=== PATIENT | male | born 1975 | race Caucasian/White ===

== ENCOUNTER 2018-02-21 14:29 | Emergency (ER) | payer SELFPAY ==
[~2018-02-21] VITALS: Ht 177.8 cm; Wt 90.0 kg
[2018-02-21 16:15] LABS: HEMATOCRIT 39.5 % (39.0-50.0); HEMOGLOBIN 12.9 g/dl (14.0-18.0); IMMATURE GRANULOCYTES 0.5 % (0.0-1.0); MEAN CORPUSCULAR HGB 29.7 pG CALC (26.0-32.0); MEAN CORPUSCULAR HGB CONC 32.7 g/L CALC (32.0-36.0); NEUT# 2.51 thou/uL (1.82-7.42); RED BLOOD COUNT 4.34 mill/uL (4.70-6.10); RED CELL DISTRI WIDTH 15.1 % (11.5-15.5)
[2018-02-21 16:27] LABS: URINE BILIRUBIN - DIPSTICK NEGATIVE (NEGATIVE); URINE BLOOD DIPSTICK NEGATIVE (NEGATIVE); URINE COLOR YELLOW; URINE GLUCOSE - DIPSTICK NEGATIVE (NEGATIVE); URINE KETONE NEGATIVE (NEGATIVE); URINE LEUK ESTERASE NEGATIVE (NEGATIVE); URINE NITRITE - DIPSTICK NEGATIVE (Negative); URINE PROTEIN - DIPSTICK NEGATIVE (NEG-TRACE); URINE UROBILINOGEN - DIPSTICK 0.2 E.U./dL (0.2)
[2018-02-21 16:29] LABS: URINE CLARITY CLEAR
[2018-02-21 16:30] LABS: COCAINE POSITIVE (NEGATIVE); METHADONE POSITIVE (NEGATIVE); TETRAHYDROCANNABIONOL NEGATIVE (NEGATIVE)
[2018-02-21 16:31] LABS: BARBITURATES NEGATIVE (NEGATIVE); OXCYCODONE NEGATIVE (NEGATIVE); TRICYLIC ANTIDEPRESSANTS NEGATIVE (NEGATIVE)
[2018-02-21 16:36] LABS: ALBUMIN 4.2 g/dL (3.2-5.0); ALKALINE PHOSPHATASE 97 u/l (38-126); ANION GAP 21 (6-22 (CALC)); BILIRUBIN, TOTAL 0.6 mg/dL (0.0-1.4); BUN 8 mg/dL (9-20); BUN/CREATININE RATIO 11 (12-20 (CALC)); CARBON DIOXIDE 21 mmol/l (22-30); CHLORIDE 104 mmol/l (95-108); CREATININE 0.7 mg/dL (0.7-1.3); GFR > 60 ML/MIN (>=60 (CALC)); GFR FOR AFR.AMER. > 60 ML/MIN (>=60 (CALC)); POTASSIUM 3.8 mmol/l (3.5-5.1); SGOT/AST 29 u/l (17-59); SGPT/ALT 37 u/l (21-72); SODIUM 142 mmol/l (137-146); TOTAL PROTEIN 7.5 g/dL (6.3-8.2)
[2018-02-21 17:25] VITALS: BP 112/58
== END 2018-02-21 17:23 | disposition short-term general hospital (02) | DRG 208 ==
LOC: ED 14:29
PROVIDERS: Emergency Medicine
PROC: 0BH17EZ Insertion of Endotracheal Airway into Trachea, Via Natural or Artificial Opening (ICD-10-PCS; principal; 2018-02-21)
PROC: 5A1935Z Respiratory Ventilation, Less than 24 Consecutive Hours (ICD-10-PCS; 2018-02-21)
PROC: 0T9B70Z Drainage of Bladder with Drainage Device, Via Natural or Artificial Opening (ICD-10-PCS; 2018-02-21)
DX: J96.00 Acute respiratory failure, unspecified whether with hypoxia or hypercapnia (principal); J18.9 Pneumonia, unspecified organism; F19.10 Other psychoactive substance abuse, uncomplicated

== ENCOUNTER 2018-05-31 12:00 | Emergency (ER) | payer SELFPAY ==
[~2018-05-31] VITALS: Ht 177.8 cm; Wt 91.0 kg
[~2018-05-31 12:00] MED LIST: ASPERCREME LIDOCA41 TOP; PREDNISONE50 MG PO; TRAMADOL HYDROC50 MG PO
[2018-05-31] MEDS ORDERED: MEDDOSEPAK PO (12:39)
[2018-05-31] MEDS ORDERED: MELOXICAM7.5 MG PO (12:39)
[2018-05-31] MEDS ORDERED: GABAPENTIN400 M2 PO (12:42)
[2018-05-31] MEDS ORDERED: METHADONE10 M1 PO (12:43)
[2018-05-31 12:50] VITALS: BP 137/84
== END 2018-05-31 12:50 | disposition home or self-care (01) | DRG 93 ==
LOC: ED 12:00
DX: G89.29 Other chronic pain (principal); M54.5 Low back pain; Z79.891 Long term (current) use of opiate analgesic

== ENCOUNTER 2018-06-28 10:40 | Emergency (ER) | payer SELFPAY ==
[~2018-06-28] VITALS: Ht 177.8 cm; Wt 88.4 kg
[~2018-06-28 10:40] MED LIST changes: +GABAPENTIN400 M2 PO; +MEDDOSEPAK PO; +MELOXICAM7.5 MG PO; +METHADONE10 M1 PO
[2018-06-28] MEDS ORDERED: GABAPENTIN400 MG PO (11:25)
[2018-06-28 12:01] VITALS: BP 134/73
== END 2018-06-28 12:02 | disposition home or self-care (01) | DRG 951 ==
LOC: ED 10:40
DX: Z76.0 Encounter for issue of repeat prescription (principal); G40.909 Epilepsy, unspecified, not intractable, without status epilepticus

== ENCOUNTER 2018-10-14 02:42 | Emergency (ER) | payer SELFPAY ==
[~2018-10-14] VITALS: Ht 177.8 cm; Wt 80.0 kg
[~2018-10-14 02:42] MED LIST changes: +GABAPENTIN400 MG PO
[2018-10-14 03:36] LABS: IMMATURE GRANULOCYTES 0.4 % (0.0-5.0); MEAN CELL VOLUME 89.5 fL CALC (80.0-100.0); MEAN CORPUSCULAR HGB 30.5 pG CALC (26.0-32.0); MEAN CORPUSCULAR HGB CONC 34.1 g/L CALC (32.0-36.0); NEUT# 5.2 thou/uL (1.82-7.42); RED BLOOD COUNT 5.24 mill/uL (4.70-6.10); RED CELL DISTRI WIDTH 13.1 % (11.5-15.5)
[2018-10-14 03:37] LABS: HEMATOCRIT 46.9 % (39.0-50.0)
[2018-10-14 03:37] LABS: URINE BILIRUBIN - DIPSTICK NEGATIVE (NEGATIVE); URINE BLOOD DIPSTICK NEGATIVE (NEGATIVE); URINE COLOR YELLOW; URINE GLUCOSE - DIPSTICK NEGATIVE (NEGATIVE); URINE KETONE >=80 mg/dL (NEGATIVE); URINE LEUK ESTERASE NEGATIVE (NEGATIVE); URINE NITRITE - DIPSTICK NEGATIVE (Negative); URINE PH 7.5 (4.5-8.0); URINE PROTEIN - DIPSTICK TRACE mg/dL (NEG-TRACE); URINE SPECIFIC GRAVITY 1.015; URINE UROBILINOGEN - DIPSTICK 0.2 E.U./dL (0.2)
[2018-10-14 03:42] LABS: ALBUMIN 4.8 g/dL (3.2-5.0); ALKALINE PHOSPHATASE 135 u/l (38-126); ANION GAP 18 (6-22 (CALC)); BILIRUBIN, TOTAL 0.9 mg/dL (0.0-1.4); BUN 6 mg/dL (9-20); BUN/CREATININE RATIO 9 (12-20 (CALC)); CARBON DIOXIDE 23 mmol/l (22-30); CHLORIDE 104 mmol/l (95-108); CREATININE 0.6 mg/dL (0.7-1.3); GFR > 60 ML/MIN (>=60 (CALC)); GFR FOR AFR.AMER. > 60 ML/MIN (>=60 (CALC)); SODIUM 140 mmol/l (137-146); TOTAL PROTEIN 8.5 g/dL (6.3-8.2)
[2018-10-14 03:43] LABS: BARBITURATES NEGATIVE (NEGATIVE); COCAINE NEGATIVE (NEGATIVE); METHADONE POSITIVE (NEGATIVE); OXCYCODONE NEGATIVE (NEGATIVE); TETRAHYDROCANNABIONOL POSITIVE (NEGATIVE); TRICYLIC ANTIDEPRESSANTS NEGATIVE (NEGATIVE)
[2018-10-14 03:44] LABS: SGOT/AST 63 u/l (17-59)
[2018-10-14] MEDS ORDERED: PHENERGAN25 MG RE (04:01)
[2018-10-14 04:35] VITALS: BP 148/65
[2018-10-14] MEDS ORDERED: PHENERGAN25 MG/TAB PO (12:00)
== END 2018-10-14 04:35 | disposition home or self-care (01) | DRG 392 ==
LOC: ED 02:42
PROVIDERS: Family Medicine
DX: K52.9 Noninfective gastroenteritis and colitis, unspecified (principal); G40.909 Epilepsy, unspecified, not intractable, without status epilepticus
CPT/HCPCS: Q9967

== ENCOUNTER 2018-10-14 08:31 | Emergency (ER) | payer SELFPAY ==
[~2018-10-14] VITALS: Ht 177.8 cm; Wt 80.0 kg
[~2018-10-14 08:31] MED LIST changes: +PHENERGAN25 MG RE
[2018-10-14 08:51] VITALS: BP 149/72
[2018-10-14 09:08] LABS: HEMATOCRIT 42.8 % (39.0-50.0); HEMOGLOBIN 14.5 g/dl (14.0-18.0); IMMATURE GRANULOCYTES 0.4 % (0.0-5.0); MEAN CELL VOLUME 91.1 fL CALC (80.0-100.0); MEAN CORPUSCULAR HGB 30.9 pG CALC (26.0-32.0); MEAN CORPUSCULAR HGB CONC 33.9 g/L CALC (32.0-36.0); NEUT# 5.65 thou/uL (1.82-7.42); RED BLOOD COUNT 4.7 mill/uL (4.70-6.10); RED CELL DISTRI WIDTH 13.2 % (11.5-15.5)
[2018-10-14 09:29] LABS: ALBUMIN 4.4 g/dL (3.2-5.0); ALKALINE PHOSPHATASE 111 u/l (38-126); ANION GAP 14 (6-22 (CALC)); BILIRUBIN, TOTAL 0.8 mg/dL (0.0-1.4); BUN 6 mg/dL (9-20); BUN/CREATININE RATIO 10 (12-20 (CALC)); CARBON DIOXIDE 25 mmol/l (22-30); CHLORIDE 106 mmol/l (95-108); CREATININE 0.6 mg/dL (0.7-1.3); GFR > 60 ML/MIN (>=60 (CALC)); GFR FOR AFR.AMER. > 60 ML/MIN (>=60 (CALC)); LIPASE 203 u/l (23-300); POTASSIUM 4.3 mmol/l (3.5-5.1); SGOT/AST 58 u/l (17-59); SODIUM 140 mmol/l (137-146); TOTAL PROTEIN 7.7 g/dL (6.3-8.2)
[2018-10-14 10:28] LABS: URINE BILIRUBIN - DIPSTICK NEGATIVE (NEGATIVE); URINE BLOOD DIPSTICK NEGATIVE (NEGATIVE); URINE COLOR YELLOW; URINE GLUCOSE - DIPSTICK NEGATIVE (NEGATIVE); URINE KETONE 15 mg/dL (NEGATIVE); URINE LEUK ESTERASE NEGATIVE (NEGATIVE); URINE NITRITE - DIPSTICK NEGATIVE (Negative); URINE PROTEIN - DIPSTICK NEGATIVE (NEG-TRACE); URINE UROBILINOGEN - DIPSTICK 0.2 E.U./dL (0.2)
[2018-10-14] MEDS ORDERED: PHENERGAN25 MG/TAB PO (12:00)
== END 2018-10-14 12:00 | disposition home or self-care (01) | DRG 392 ==
LOC: ED 08:31
PROVIDERS: Family Medicine
DX: K52.9 Noninfective gastroenteritis and colitis, unspecified (principal); G40.909 Epilepsy, unspecified, not intractable, without status epilepticus
CPT/HCPCS: Q9967

== ENCOUNTER 2018-10-17 09:15 | Observation (INO) | payer SELFPAY ==
[~2018-10-17] VITALS: Ht 177.8 cm; Wt 91.0 kg
[~2018-10-17 09:15] MED LIST changes: +PHENERGAN25 MG/TAB PO
--- NOTE | 2018-10-17 09:36 | NUR ---
PATIENT TO ROOM VIA WHEELCHAIR. ASSISTED ONTO STRETCHER.
[2018-10-17 10:54] LABS: ALKALINE PHOSPHATASE 96 u/l (38-126); ANION GAP 14 (6-22 (CALC)); BILIRUBIN, TOTAL 0.4 mg/dL (0.0-1.4); BUN 8 mg/dL (9-20); BUN/CREATININE RATIO 11 (12-20 (CALC)); CARBON DIOXIDE 25 mmol/l (22-30); CHLORIDE 108 mmol/l (95-108); CREATININE 0.7 mg/dL (0.7-1.3); GFR > 60 ML/MIN (>=60 (CALC)); GFR FOR AFR.AMER. > 60 ML/MIN (>=60 (CALC)); LIPASE 410 u/l (23-300); POTASSIUM 4.9 mmol/l (3.5-5.1); SGOT/AST 40 u/l (17-59); SODIUM 142 mmol/l (137-146); TOTAL PROTEIN 7.1 g/dL (6.3-8.2)
[2018-10-17 10:55] LABS: HEMATOCRIT 41.2 % (39.0-50.0); HEMOGLOBIN 13.8 g/dl (14.0-18.0); IMMATURE GRANULOCYTES 0.4 % (0.0-5.0); MEAN CELL VOLUME 92.4 fL CALC (80.0-100.0); MEAN CORPUSCULAR HGB 30.9 pG CALC (26.0-32.0); MEAN CORPUSCULAR HGB CONC 33.5 g/L CALC (32.0-36.0); NEUT# 5.06 thou/uL (1.82-7.42); RED BLOOD COUNT 4.46 mill/uL (4.70-6.10); RED CELL DISTRI WIDTH 13.4 % (11.5-15.5)
--- NOTE | 2018-10-17 10:58 | NUR ---
PT RECEIVES MEDS ORDERED FOR RELIEF OF LOUD VOMITING. PT STATES PAIN MED DID NOT HELP.
--- NOTE | 2018-10-17 11:25 | NUR ---
PT PROVIDED THIRD DOSE OF ZOFRAN ALONG WITH MORPHINE 4 MG PER CONTINUED NAUSEA AND PAIN.
[2018-10-17 12:30] VITALS: BP 140/82
--- NOTE | 2018-10-17 12:32 | NUR ---
PT ARRIVED AT 1232 VIA WHEELCHAIR ACCOMPANIED BY MARI HAAS;PT AMBULATED TO STANDING SCALE AND BEDSIDE WITH A STEADY GAIT;WT AND VS OBTAINED BY HERBIE COHEN;PT ORIENTED TO ROOM AND CALL LIGHT SYSTEM;PT ALERT AND ORIENTED X3;PT REPORTS NAUSEA,VOMITING AND DIARRHEA X 4DAYS;PAIN SCALE AND REPORTING EDUCATED;ASSESSMENT COMPLETED;RESPIRATIONS EVEN AND UNLABORED ON RA,CLEAR LUNG SOUNDS NOTED;ABDOMEN SOFT ON PALPATION AND HYPOACTIVE IN ALL 4 QUADRANTS,TENDERNESS NOTED TO LLQ;LAST BM 10/17/18;STRONG PEDAL PULSES;SKIN INTACT;#22G TO RIGHT FOREARM INFUSING NS WITH EASE,SITE APPEARS HEALTHY;IT SHOULD BE NOTED THAT SEIZURE PRECAUTIONS WILL BE PUT INTO PLACE,LAST SEIZURE 1 YEAR AGO;NPO DIET REINFORCED AND PT VERBALIZES UNDERSTANDING;PT DENIES ANY ADDITIONAL NEEDS AT THIS TIME AND IS INSTRUCTED TO CALL FOR ASSISTANCE IF NEEDED;FALL PRECAUTIONS IN PLACE WITH BED IN THE LOWEST POSITION AND CALL LIGHT IN REACH;WILL CONTINUE TO MONITOR
--- NOTE | 2018-10-17 12:36 | NUR ---
REPORT PROVIDED TO VANESSA, TAKEN TO FLOOR WITHOUT INCIDENT.
[2018-10-17 12:50] LABS: URINE BILIRUBIN - DIPSTICK NEGATIVE (NEGATIVE); URINE BLOOD DIPSTICK NEGATIVE (NEGATIVE); URINE COLOR YELLOW; URINE GLUCOSE - DIPSTICK NEGATIVE (NEGATIVE); URINE KETONE NEGATIVE (NEGATIVE); URINE LEUK ESTERASE NEGATIVE (NEGATIVE); URINE NITRITE - DIPSTICK NEGATIVE (Negative); URINE PROTEIN - DIPSTICK NEGATIVE (NEG-TRACE); URINE SPECIFIC GRAVITY 1.015; URINE UROBILINOGEN - DIPSTICK 0.2 E.U./dL (0.2)
[2018-10-17 12:56] LABS: COCAINE NEGATIVE (NEGATIVE); TETRAHYDROCANNABIONOL POSITIVE (NEGATIVE)
[2018-10-17 12:57] LABS: BARBITURATES NEGATIVE (NEGATIVE); METHADONE POSITIVE (NEGATIVE); OXCYCODONE POSITIVE (NEGATIVE); TRICYLIC ANTIDEPRESSANTS NEGATIVE (NEGATIVE)
--- NOTE | 2018-10-17 13:54 | NUR ---
DR CAREN ALDRIDGE WAS NOTIFIED FOR THE PATIENT'S CONSULTATION, HE'LL COME TO SEE THE PATIENT.
--- NOTE | 2018-10-17 14:30 | NUR ---
PT REPORTS INCREASING ABDOMINAL PAIN AND STATES "I HAVENT TAKEN MY HOME MEDICATION IN 1 DAY.I NEED THEM", NOTIFIED AND REPORTS HE WILL PUT NEW ORDERS IN THE SYSTEM.
--- NOTE | 2018-10-17 15:15 | NUR ---
PT RESTING IN SEMI FOWLERS POSITION;RESPIRATIONS EVEN AND UNLABORED ON RA;CURRENT TEMP 100.0, PT MEDICATED WITH 500MG IV OF TYLENOL;PT ALSO REPORTS LLQ ABDOMINAL PAIN RATING 10/10 ON THE PAIN SCALE AND REQUESTS PAIN MEDICATION;PT MEDICATED WITH PRN DEMEROL 25MG IVP,WILL MONITOR FOR EFFECTIVENESS;SEIZURE PRECAUTIONS IN PLACE;PT DENIES ANY ADDITIONAL NEEDS AT THIS TIME;ENCOURAGED TO CALL FOR ASSISTANCE IF NEEDED;CALL LIGHT IN REACH;WILL CONTINUE TO MONITOR
--- NOTE | 2018-10-17 15:20 | NUR ---
AT BEDSIDE DISCUSSING POC.
[2018-10-17 15:36] VITALS: BP 124/73
--- NOTE | 2018-10-17 19:29 | NUR ---
BEDSIDE REPORT RECEIVED FROM NEGIN MENDEZ. PT RESTING IN BED SEMI FOWLERS; ALERT AND ORIENTED. C/O SEVERE LEFT ABOMINAL PAIN AND REPORTS SPASMS. REQUESTS PAIN MEDICATION AT NEXT AVAILABLE TIME. RESPIRATIONS EVEN AND UNLABORED ON ROOM AIR. PLAN OF CARE REVIEWED. PT ENCOURAGED TO VERBALIZE CONCERNS. STATES UNDERSTANDING. SAFETY MEASURES IN PLACE. CALL LIGHT WITHIN REACH.
[2018-10-17 19:56] VITALS: BP 118/51
--- NOTE | 2018-10-17 20:05 | NUR ---
PAIN MEDICATION ADMINISTERED. PT REQUESTING SOMETHING TO EAT; INFORMED THAT DR. ALDRIDGE WILL BE IN TO SEE PT AND UPDATE DIET DEPENDING ON TX PLAN.
--- NOTE | 2018-10-18 00:44 | NUR ---
PT CONTINUES TO C/O SEVERE ABDOMINAL PAIN; MEDICATED PER ORDERS. PT STATES THAT RESTORIL GIVEN AT HS WAS INEFFECTIVE FOR SLEEP. RESPIRATIONS EVEN AND UNLABORED ON ROOM AIR. IV FLUIDS INFUSING WITHOUT DIFFICULTY; IV SITE APPEARS HEALTHY. PT IS INDEPENDENT IN ROOM. SAFETY MEASURES IN PLACE. CALL LIGHT WITHIN REACH.
[2018-10-18 04:50] VITALS: BP 147/88
--- NOTE | 2018-10-18 05:18 | NUR ---
PAIN AND NAUSEA MEDICATION GIVEN AT 0430 WITH GOOD EFFECT. NO CHANGES IN CONDITION THROUGHOUT THE NIGHT. NO OTHER REQUESTS OR CONCERNS AT THIS TIME. CALL LIGHT WITHIN REACH.
[2018-10-18 05:34] LABS: HEMATOCRIT 41.1 % (39.0-50.0); HEMOGLOBIN 13.7 g/dl (14.0-18.0); IMMATURE GRANULOCYTES 0.5 % (0.0-5.0); MEAN CELL VOLUME 93.8 fL CALC (80.0-100.0); MEAN CORPUSCULAR HGB 31.3 pG CALC (26.0-32.0); MEAN CORPUSCULAR HGB CONC 33.3 g/L CALC (32.0-36.0); NEUT# 3.34 thou/uL (1.82-7.42); RED BLOOD COUNT 4.38 mill/uL (4.70-6.10); RED CELL DISTRI WIDTH 13.4 % (11.5-15.5)
[2018-10-18 05:47] LABS: ALBUMIN 3.8 g/dL (3.2-5.0); ALKALINE PHOSPHATASE 82 u/l (38-126); AMYLASE 47 u/l (30-110); ANION GAP 12 (6-22 (CALC)); BILIRUBIN, TOTAL 0.6 mg/dL (0.0-1.4); BUN 6 mg/dL (9-20); BUN/CREATININE RATIO 9 (12-20 (CALC)); CARBON DIOXIDE 29 mmol/l (22-30); CHLORIDE 105 mmol/l (95-108); CREATININE 0.7 mg/dL (0.7-1.3); GFR > 60 ML/MIN (>=60 (CALC)); GFR FOR AFR.AMER. > 60 ML/MIN (>=60 (CALC)); LIPASE 152 u/l (23-300); MAGNESIUM 1.8 mg/dL (1.6-2.3); SGOT/AST 41 u/l (17-59); SODIUM 142 mmol/l (137-146); TOTAL PROTEIN 6.8 g/dL (6.3-8.2)
[2018-10-18 05:51] LABS: POTASSIUM 3.5 mmol/l (3.5-5.1)
--- NOTE | 2018-10-18 07:00 | NUR ---
REPORT RECEIVED FROM MARI CALVO. PT RESTING IN BED. SAFETY PRECAUTIONS IN PLACE. WILL CONTINUE TO MONITOR.
[2018-10-18 08:00] VITALS: BP 125/61
--- NOTE | 2018-10-18 08:00 | NUR ---
PT RESTING IN BED. ALERT AND ORIENTED. VITAL SIGNS OBTAINED AND ASSESSMENT COMPLETED. RESPIRATIONS EVEN AND UNLABORED ON RA. LUNG SOUNDS CLEAR. PEDAL PULSES STRONG. BOWEL SOUNDS ACTIVE. IV # 22 LF FOREARM, FLUIDS INFUSING WITHOUT DIFFICULTY. PT REPORTS PAIN IN THE ABDOMIN AND LOWER BACK BEING AT A 9 OUT OF 10, PT TO BE MEDICATED. PT ENCOURAGED TO USE CALL BACON IF NEEDS SHOULD ARISE. SAFETY PRECAUTIONS IN PLACE. WILL CONTINUE TO MONITOR.
--- NOTE | 2018-10-18 12:00 | NUR ---
PT CRYING IN PAIN. REPORTS PAIN OF 10 OUT 10. MEDICATION NOT DUE AT THIS TIME. TALKED TO DR SMITH ABOUT PT PAIN NOT BEING CONTROLLED, NEW PAIN MEDICATION ORDER TO BE PLACED BY DR SMITH. PT EDUCATED ON PLAN CARE, INCLUDING PAIN MEDICATION CHANGE VERBALIZED UNDERSTANDING. CALL LIGHT WITHIN REACH. WILL CONTINUE TO MONITOR.
--- NOTE | 2018-10-18 12:40 | NUR ---
DR SMITH AT PT BEDSIDE DISCUSSING PLAN OF CARE.
--- NOTE | 2018-10-18 14:09 | NUR ---
DR ALDRIDGE AT PT BEDSIDE DISCUSSING PLAN OF CARE.
--- NOTE | 2018-10-18 16:00 | NUR ---
PT SITTING ON SIDE OF BED. PT COMPLAINING OF NAUSEA FROM DRINKING CONTRAST. CONSULTED DR SMITH ABOUT GIVING PT ZOFRAN AN HOUR EARLY SO THAT PT CAN COMPLETE CONTRAST. AGREES. WILL CONTINUE TO MONITOR.
[2018-10-18 16:10] VITALS: BP 158/84
[2018-10-18 19:35] VITALS: BP 147/90
--- NOTE | 2018-10-18 19:45 | NUR ---
IV SITE ON LFA BEGAN TO LEAK. STOPPED INFUSION. WILL RESTART. THE IV
--- NOTE | 2018-10-18 20:15 | NUR ---
IV RESTARTED IN RFA AFTER 2 ATTEMPTS. PT TOLERATED WELL. #20 RFA
--- NOTE | 2018-10-18 20:45 | NUR ---
ASSESSMENT IS COMPLETED: IV SITE IS FREE FROM REDNESS OR EDEMA. HR IS REG,PULSES ARE STRONG X4, ABD IS SOFT WITH ACTIVE BS. BREATH SOUNDS ARE CLEAR,BILATERALLY.CONTINUE TO OSBERVE AND MONITOR.
--- NOTE | 2018-10-19 00:40 | NUR ---
PT IS RESTING WITH EYES CLOSED NO DISTRESS NOTED. IV SITE IS FREE FROM REDNESS OR EDEMA.
[2018-10-19 04:02] VITALS: BP 149/73
--- NOTE | 2018-10-19 04:10 | NUR ---
PT HAS BEEN RESTING IN BED CONTINUE TO OSBERVE AND MONITOR.
--- NOTE | 2018-10-19 05:15 | NUR ---
PT C/O NEEDING A FAN FOR THE NOISE. ALSO C/O PAIN MEDICATIONS NOT WORKING, HAS HAD LOOSE STOOLS FOR THE LAST HOUR DUE TO ORAL CONTRAST. WANTING SOMETHING TO EAT. CONTINUE TO OSBERVE AND MONITOR.
[2018-10-19 05:47] LABS: HEMATOCRIT 45.5 % (39.0-50.0); HEMOGLOBIN 15.2 g/dl (14.0-18.0); IMMATURE GRANULOCYTES 0.4 % (0.0-5.0); MEAN CELL VOLUME 93.8 fL CALC (80.0-100.0); MEAN CORPUSCULAR HGB 31.3 pG CALC (26.0-32.0); MEAN CORPUSCULAR HGB CONC 33.4 g/L CALC (32.0-36.0); NEUT# 2.8 thou/uL (1.82-7.42); RED BLOOD COUNT 4.85 mill/uL (4.70-6.10); RED CELL DISTRI WIDTH 13.2 % (11.5-15.5)
[2018-10-19 05:58] LABS: ALBUMIN 4.3 g/dL (3.2-5.0); ALKALINE PHOSPHATASE 91 u/l (38-126); AMYLASE 47 u/l (30-110); ANION GAP 14 (6-22 (CALC)); BILIRUBIN, TOTAL 0.8 mg/dL (0.0-1.4); BUN 6 mg/dL (9-20); BUN/CREATININE RATIO 8 (12-20 (CALC)); CARBON DIOXIDE 27 mmol/l (22-30); CHLORIDE 105 mmol/l (95-108); CREATININE 0.7 mg/dL (0.7-1.3); GFR > 60 ML/MIN (>=60 (CALC)); GFR FOR AFR.AMER. > 60 ML/MIN (>=60 (CALC)); LIPASE 151 u/l (23-300); POTASSIUM 3.5 mmol/l (3.5-5.1); SGOT/AST 46 u/l (17-59); SODIUM 142 mmol/l (137-146); TOTAL PROTEIN 7.5 g/dL (6.3-8.2)
--- NOTE | 2018-10-19 06:37 | NUR ---
PT IS C/O NOT HAVING HIS PAIN MEDICATION , WANTING TO GET HIS PAIN MEDICATIONS WITHIN THE HOUR OR HE WILL SIGN OUT AMA. CONCERNED ABOUT GOING THROUGH WITHDRAWALS.
--- NOTE | 2018-10-19 06:41 | NUR ---
SPOKE WITH DR. CASTANON IS REQUESTING THAT PT WAIT FOR DR. CASTANON TO COME IN AND SEE PT RE: MEDICATIONS
--- NOTE | 2018-10-19 07:05 | NUR ---
PT WALKED UP TO NURSES STATION STATING "TAKE THIS OUT OF MY ARM,I HAVE A TAXI DOWNSTAIRS WAITING FOR ME".
--- NOTE | 2018-10-19 07:07 | NUR ---
PT DECIDED TO LEAVE AMA. PT CAME TO THE NURSES STATION AT 0708 DEMANDING TO LEAVE.
--- NOTE | 2018-10-19 07:10 | NUR ---
IV SITE REMOVED WITH CATHETER INTACT.AMA PAPER SIGNED AND PT AMBULATED DOWN HALLWAY WITH A STEADY GAIT.
--- NOTE | 2018-10-19 07:12 | NUR ---
INFORMED RE: PT SIGNING OUT AMA FORM. IV SITE PULLED BY ONCOMING STAFF
== END 2018-10-19 07:10 | disposition left against medical advice (07) | DRG 392 ==
LOC: ED 09:15 → ED-I 11:34 → ED 11:46 → MS2 11:47
PROVIDERS: Family Medicine; ADMIT Internal Medicine Nephrology; ATTEND Internal Medicine Nephrology
DX: R10.84 Generalized abdominal pain (principal); R11.2 Nausea with vomiting, unspecified; G40.909 Epilepsy, unspecified, not intractable, without status epilepticus; F41.9 Anxiety disorder, unspecified; D64.9 Anemia, unspecified; G89.21 Chronic pain due to trauma; Z23 Encounter for immunization; Z79.899 Other long term (current) drug therapy; Z79.891 Long term (current) use of opiate analgesic
CPT/HCPCS: G0378; J0131; J0692; Q9967

== ENCOUNTER 2018-11-11 16:36 | Inpatient (IN) | payer SELFPAY ==
[~2018-11-11] VITALS: Ht 180.3 cm; Wt 88.5 kg
--- NOTE | 2018-11-11 16:48 | NUR ---
PT TO ROOM WITH A STEADY GAIT.
[2018-11-11] MEDS ORDERED: METHADONE10 M1 PO (17:43)
--- NOTE | 2018-11-11 17:46 | NUR ---
PATIENT REFUSED 1000 MG OF TYLENOL PO FOR FOREHEAD PAIN. SWELLING NOTED TO LEFT SIDE OF FOREHEAD AFTER FALL CAUSED BY SEIZURE. PATIENT IS ALERT AND ORIENTED X4. PATIENT STATS "IM IN SO MUCH FUCKING PAIN, I CANT BELEIVE HE ONLY GAVE ME TYLENOL." INFORMED OF PATIENT REQUEST FOR MORPHINE TO TREAT PAIN. NO NEW ORDERS RECEIVED.
[2018-11-11 17:56] LABS: HEMOGLOBIN 15.1 g/dl (14.0-18.0); IMMATURE GRANULOCYTES 0.2 % (0.0-5.0); MEAN CELL VOLUME 90.2 fL CALC (80.0-100.0); MEAN CORPUSCULAR HGB 30.3 pG CALC (26.0-32.0); MEAN CORPUSCULAR HGB CONC 33.6 g/L CALC (32.0-36.0); NEUT# 5.23 thou/uL (1.82-7.42); RED BLOOD COUNT 4.99 mill/uL (4.70-6.10); RED CELL DISTRI WIDTH 13.6 % (11.5-15.5)
[2018-11-11 18:08] LABS: ALKALINE PHOSPHATASE 117 u/l (38-126); ANION GAP 23 (6-22 (CALC)); BILIRUBIN, TOTAL 0.6 mg/dL (0.0-1.4); BUN 6 mg/dL (9-20); BUN/CREATININE RATIO 10 (12-20 (CALC)); CARBON DIOXIDE 24 mmol/l (22-30); CHLORIDE 99 mmol/l (95-108); CREATININE 0.6 mg/dL (0.7-1.3); ETHYL ALCOHOL 255 mg/dl (0-30); GFR > 60 ML/MIN (>=60 (CALC)); GFR FOR AFR.AMER. > 60 ML/MIN (>=60 (CALC)); POTASSIUM 4.2 mmol/l (3.5-5.1); SODIUM 142 mmol/l (137-146); TOTAL PROTEIN 8.2 g/dL (6.3-8.2)
[2018-11-11 18:16] LABS: SGOT/AST 168 u/l (17-59)
--- NOTE | 2018-11-11 18:45 | NUR ---
PATIENT REPORTS HEAD PAIN 7/10 AT THIS TIME.
--- NOTE | 2018-11-11 18:50 | NUR ---
REPORT GIVEN TO MARI SANTIZO. CARE RELINQUISHED.
--- NOTE | 2018-11-11 19:41 | NUR ---
A/O ANXIOUS M W/P/D SKIN IV SALINE 1L BOLUS COMPLETED IV SITE RFA WNL
--- NOTE | 2018-11-11 21:00 | NUR ---
Admission Note Report Given to: SBAR PRINTED TO FLOOR Transported by: Wheelchair X Stretcher Transported with: X Nurse Transporter X Patent IV O2 X Craps Manager
--- NOTE | 2018-11-11 21:05 | NUR ---
PT. ARRIVES FROM ER VIA STRETCHER. AMBULATORY WITH UNSTEADY GAIT FROM STRETCHER TO STANDING SCALE AND THEN TO ICU BED #4 WITHOUT ASSISTANCE. PT. CHANGED FROM STREET CLOTHES INTO GOWN. PT. AWAKE, ALERT, ORIENTED X 3. NO DISTRESS. PT. REQUESTING PAIN MEDICATION IMMEDIATELY ON ARRIVAL TO UNIT. PT. INFORMED THAT ONCE HE WAS ASSESSED AND SITUATED, THE PHYSICIAN WOULD BE CONTACTED. PT. C/O FRONTAL HEAD PAIN. STATES HE WAS GIVEN TORADOL DOWN STAIRS THAT DIDN'T HELP. BP/HR STABLE ON ARRIVAL. SINUS IN THE 90'S. MAE. JOHNSONL. NO EVIDENCE OF SEIZURE. PT. STATES HE HAD SEIZURE JUST PRIOR TO ARRIVAL. ASKING STAFF TO GET HIS RECORDS FROM [place] SO WE KNOW EVERYTHING HE IS ON. PT. STATES HE IS TAKING GABAPENTIN FOR SEIZURES. PT. INFORMED THAT IS NOT THE TYPICAL PRIMARY USE OF GABAPENTIN TO PREVENT SEIZURES. STATES HE THINKS HIS ALCOHOL LEVEL IS LOW. PT. WAS INFORMED HIS ETOH WAS 255 AND WELL ABOVE THE LEGAL LIMIT. BED SIDE RAILS PADDED FOR SEIZURE PRECAUTIONS. WILL MEDICATE ORDERED.
[2018-11-11 21:08] LABS: BARBITURATES NEGATIVE (NEGATIVE); COCAINE NEGATIVE (NEGATIVE); METHADONE POSITIVE (NEGATIVE); OXCYCODONE NEGATIVE (NEGATIVE); TETRAHYDROCANNABIONOL POSITIVE (NEGATIVE); TRICYLIC ANTIDEPRESSANTS NEGATIVE (NEGATIVE)
[2018-11-11 21:15] VITALS: BP 152/94
[2018-11-11 21:30] VITALS: BP 155/83
--- NOTE | 2018-11-11 21:35 | NUR ---
CALL PLACED TO DR. SMITH. UPDATED ON PT. REQUEST TO TAKE HIS OWN ROUTINE METHADONE TONIGHT FOR PAIN. DR. SMITH INFORMED THE PT. BROUGHT HIS OWN MEDICATIONS AND DR. SMITH AGREES HE CAN TAKE HIS METHADONE ORDERED. WILL MEDICATE ORDERED.
[2018-11-11 21:45] VITALS: BP 146/79
[2018-11-11 22:00] VITALS: BP 140/81
--- NOTE | 2018-11-11 22:05 | NUR ---
PT. C/O NAUSEA. NEW ORDERS RECEIVED. FAXED TO PHARMACY. WILL MEDICATE ORDERED. PROVIDED WITH CHICKEN BULLION PER PT. REQUEST.
--- NOTE | 2018-11-11 22:21 | NUR ---
MEDICATED WITH PT. OWN MED AT THIS TIME. SEE DOCUMENTATION
[2018-11-12] VITALS (11 sets, daily range): BP systolic 123–163; BP diastolic 63–88
--- NOTE | 2018-11-12 00:15 | NUR ---
PT. REMAINS EASILY AROUSABLE TO LIGHT VERBAL STIMULI. REMAINS AFEBRILE. SR IN THE 90'S. RESPS EVEN AND UNLABORED. CALL LIGHT REMAINS WITHIN REACH. WILL CONTINUE TO ASSESS.
--- NOTE | 2018-11-12 01:27 | NUR ---
PT. RESTING IN BED WITH EYES CLOSED IN NO DISTRESS. IV FLUIDS INFUSING WITHOUT SX OF INFILTRATION OR EXTRAVASATION. CALL LIGHT REMAINS WITHIN REACH.
--- NOTE | 2018-11-12 02:52 | NUR ---
PT. RESTING IN BED WITH EYES CLOSED. RESPS EVEN AND UNLABORED. BP/HR STABLE. CALL LIGHT WITHIN REACH. WILL CONTINUE TO ASSESS.
--- NOTE | 2018-11-12 03:01 | NUR ---
PT. STANDING AT BEDSIDE TO URINATE AT THIS TIME. REQUESTING FAN. WILL CONTINUE TO MONITOR.
--- NOTE | 2018-11-12 03:20 | NUR ---
WHEN ATTEMPTING TO STAND AND URINATE, PT. HR ELEVATED TO 150 RANGE. SOON HE SAT BACK DOWN TO REST HR DECREASED BACK TO SINUS IN THE 90'S.
--- NOTE | 2018-11-12 05:16 | NUR ---
PT. REMAINS EASILY AROUSABLE TO LIGHT VERBAL STIMULI. LAB AT BEDSIDE AT THIS TIME TO DRAW PT. NASAL SWAB OBTAINED TO R/O MRSA. PT. UPDATED ON AM PLAN OF CARE. DENIES OTHER COMPLAINTS.
--- NOTE | 2018-11-12 05:42 | NUR ---
PT. IMMEDIATELY VOMITED AFTER ADMINISTRATION OF ORAL MEDICATIONS. WILL REMEDICATE WHEN NAUSEA SUBSIDES. PT. REFUSED TO ALLOW LINENS TO BE CHANGED AT THIS TIME, STATES HE JUST WANTS TO REST FOR A BIT.
[2018-11-12 05:47] LABS: IMMATURE GRANULOCYTES 0.2 % (0.0-5.0); MEAN CELL VOLUME 91.3 fL CALC (80.0-100.0); MEAN CORPUSCULAR HGB 31.1 pG CALC (26.0-32.0); NEUT# 3.96 thou/uL (1.82-7.42); RED BLOOD COUNT 4.15 mill/uL (4.70-6.10); RED CELL DISTRI WIDTH 13.3 % (11.5-15.5)
[2018-11-12 05:49] LABS: ALKALINE PHOSPHATASE 89 u/l (38-126); AMYLASE < 30 u/l (30-110); ANION GAP 17 (6-22 (CALC)); BILIRUBIN, TOTAL 0.7 mg/dL (0.0-1.4); BUN 6 mg/dL (9-20); BUN/CREATININE RATIO 10 (12-20 (CALC)); CARBON DIOXIDE 24 mmol/l (22-30); CHLORIDE 102 mmol/l (95-108); CREATININE 0.6 mg/dL (0.7-1.3); GFR > 60 ML/MIN (>=60 (CALC)); GFR FOR AFR.AMER. > 60 ML/MIN (>=60 (CALC)); LIPASE 78 u/l (23-300); POTASSIUM 3.8 mmol/l (3.5-5.1); SGOT/AST 110 u/l (17-59); SODIUM 139 mmol/l (137-146)
[2018-11-12 05:51] LABS: TOTAL PROTEIN 6.5 g/dL (6.3-8.2)
[2018-11-12 05:52] LABS: ALBUMIN 3.9 g/dL (3.2-5.0); HEMATOCRIT 37.9 % (39.0-50.0); HEMOGLOBIN 12.9 g/dl (14.0-18.0); MAGNESIUM 1.3 mg/dL (1.6-2.3)
--- NOTE | 2018-11-12 06:14 | NUR ---
CARDINAL CALLED ABOUT ANTIEMETIC. PER SHAYNA WILL PROFILE LETTY.
--- NOTE | 2018-11-12 07:10 | NUR ---
PT IS ERLAXING IN BED ASSESSMENT IS COMPLTED: IV SITE IS FREE FROM REDNESS OR EDEMA. HR IS REG,PULSES ARE STRONG X4, ABD IS SOFT WITH ACTIVE BS. BREATH SOUNDS ARE CLEAR, BILATERALLY, CONITNUE TO OBSERVE AND MONITOR
--- NOTE | 2018-11-12 07:13 | NUR ---
gave medication to pharmacy for packaging.
--- NOTE | 2018-11-12 07:13 | NUR ---
pt states" the nausea medicaiton took effect. I am ready to retake my methadone and librium now" explained the methadone had to be sent to pharmacy.
--- NOTE | 2018-11-12 10:00 | NUR ---
PT IS RESTING WITH EYES CLOSED. NO DISTRESS NOTED. IV SITE IS FREE FROM REDNESS OR EDEMA
--- NOTE | 2018-11-12 11:20 | NUR ---
IN TO VISIT WITH PT. TRANSFERRED TO THE BSC, A LITTLE WOBBLY./ URINATED. CONTINUE TO OSBERVE AND MONITOR.
--- NOTE | 2018-11-12 11:58 | NUR ---
PT IS RELAXING IN BED , FRIEND IN TO VISIT WITH PT. CONTINUE TO OSBERVE AND MONITOR.
--- NOTE | 2018-11-12 14:00 | NUR ---
PT IS RESTING IN BED WITH NO DISTRESS NOTED. IV SITE IS FREE FROM REDNESS OR EDEMA.
--- NOTE | 2018-11-12 16:00 | NUR ---
PT STOOD UP TO USE THE URINAL. IV SITE IS FREE FROM REDNESS OR EDEMA. PT REFUSES TO LET ME CHANGE THE BED.
--- NOTE | 2018-11-12 17:28 | NUR ---
PT CONTINUES TO LAY IN THE BED, WHEN ASKED ABOUT LINEN STATES" WILL DO IT LATER".
--- NOTE | 2018-11-12 17:55 | NUR ---
PT DRANK HIS SOUP/ TOLERATED WELL. IV SITE IS FREE FROM REDNESS OR EDEMA.
--- NOTE | 2018-11-12 19:30 | NUR ---
BEDSIDE REPORT RECEIVED FROM NEGIN DE LOS SANTOS. PT RESTING IN BED SUPINE WITH EYES CLOSED; OPENS EYES SPONTANEOUSLY; ALERT AND ORIENTED. C/O A HEADACHE 04/19 AT SITE THAT HE STATES HE HIT HIS HEAD. RESPIRATIONS EVEN AND UNLABORED ON ROOM AIR. DENIES NAUSEA, BUT STATES THAT HE CAN ONLY TOLERATE SMALL SIPS OF GINGERALE AND ONLY HAD 2 BITES OF TOMATO SOUP FOR DINNER. MILD TREMORS NOTED TO HANDS AND PT C/O ANXIETY AND THAT HE WANTS AN ALCOHOLIC DRINK. PLAN OF CARE REVIEWED INCLUDING SCHEDULED MEDICATIONS FOR PAIN AND ANXIETY. PT ENCOURAGED TO VERBALIZE CONCERNS. STATES UNDERSTANDING. STANDING AT BEDSIDE TO USE URINAL AT THIS TIME. INSISTS THAT NURSE LEAVE THE ROOM WHILE HE VOIDS. SAFETY MEASURES IN PLACE. CALL LIGHT WITHIN REACH.
--- NOTE | 2018-11-12 22:00 | NUR ---
ALL HS MEDICATIONS ADMINSITERED INCLUDING IV ATIVAN. PT REQUESTED THAT ALL SCHEDULED MEDS BE WRITTEN ON WHITE BOARD. IV FLUIDS INFUSING WITHOUT DIFFICULTY; IV SITE APPEARS HEALTHY.
[2018-11-13] VITALS: BP 157/78
--- NOTE | 2018-11-13 00:30 | NUR ---
MIDNIGHT MEDICATIONS ADMINSITERED. PT CALLED AND REQUESTED THEM 10 MINUTES BEFORE THEY WERE DUE. REQUESTED THAT BSC BE MOVED TO OPPOSITE SIDE OF BED THAN WIRES. ASSISTED SELF ONTO BSC TO VOID 625ML CLEAR YELLOW URINE. STATES THAT LIBRIUM HAS BEEN VERY EFFECTIVE FOR ALCOHOL CRAVINGS. SEEMS ANXIOUS ABOUT BLOOOD PRESSURE WHICH IS SLIGHTLY ELEVATED; REASSURED THAT WE ARE WATCHING HIS VS CLOSELY.
--- NOTE | 2018-11-13 02:00 | NUR ---
PT RESTING COMFORTABLY IN BED; SCHEDULED ATIVAN EFFECTIVE FOR ANXIETY. REMAINS ON CONTACT PRECAUTIONS FOR HISTORY OF MRSA.
[2018-11-13 02:19] VITALS: BP 144/91
--- NOTE | 2018-11-13 04:00 | NUR ---
PT UP TO BSC TO VOID; LINENS CHANGED AT THIS TIME. PT REQUESTED PRIVACY TO VOID. PT OBSERVED AMBULATING INTO THE BATHROOM PULLING ALL WIRES TAUNT. NURSE OFFERED ASSISTANCE AND PT IS VERY ANXIOUS AND SHOUTS, "I JUST NEED TO PEE LIKE A MAN!" UNATTACHED FROM ALL EQUIPMENT SO HE COULD USE TOILET IN BATHROOM. PT ALSO REQUESTED THAT WATER BE TURNED ON; APPEARS TO HAVE TROUBLE STARTING STREAM. ASSISTED BACK INTO BED AND REATTACHED TO EQUIPMENT. PT ASKING WHEN NEXT MEDICATIONS ARE DUE.
[2018-11-13 04:14] VITALS: BP 149/85
[2018-11-13 04:56] LABS: HEMATOCRIT 40.2 % (39.0-50.0); HEMOGLOBIN 13.2 g/dl (14.0-18.0); IMMATURE GRANULOCYTES 0.3 % (0.0-5.0); MEAN CELL VOLUME 92.2 fL CALC (80.0-100.0); MEAN CORPUSCULAR HGB 30.3 pG CALC (26.0-32.0); MEAN CORPUSCULAR HGB CONC 32.8 g/L CALC (32.0-36.0); NEUT# 1.71 thou/uL (1.82-7.42); RED BLOOD COUNT 4.36 mill/uL (4.70-6.10); RED CELL DISTRI WIDTH 13.4 % (11.5-15.5)
--- NOTE | 2018-11-13 05:00 | NUR ---
PT REPORTS THAT HE HAS STARTED SEEING BLACK MOVING SPOTS ON THE VU. CURRENTY WEARING SUN GLASSES TO AVOID SEEING THEM. DENIES AUDIBLE OR TACTILE HALLUCINATIONS.
[2018-11-13 05:11] LABS: ALBUMIN 3.9 g/dL (3.2-5.0); ALKALINE PHOSPHATASE 94 u/l (38-126); AMYLASE < 30 u/l (30-110); ANION GAP 13 (6-22 (CALC)); BILIRUBIN, TOTAL 0.9 mg/dL (0.0-1.4); BUN 4 mg/dL (9-20); BUN/CREATININE RATIO 6 (12-20 (CALC)); CARBON DIOXIDE 28 mmol/l (22-30); CHLORIDE 101 mmol/l (95-108); CREATININE 0.6 mg/dL (0.7-1.3); GFR > 60 ML/MIN (>=60 (CALC)); GFR FOR AFR.AMER. > 60 ML/MIN (>=60 (CALC)); LIPASE 106 u/l (23-300); MAGNESIUM 1.5 mg/dL (1.6-2.3); POTASSIUM 3.5 mmol/l (3.5-5.1); SGOT/AST 137 u/l (17-59); SODIUM 139 mmol/l (137-146); TOTAL PROTEIN 6.6 g/dL (6.3-8.2)
--- NOTE | 2018-11-13 06:24 | NUR ---
PT RESTING ON LEFT SIDE WITH SUNGLASSES ON AND COVERS OVER HIS HEAD. STATES THAT THE BLACK DOTS HE IS SEEING ARE GIVING MAKING HIM NERVOUS. HE ONLY SEES THEM WHEN HIS EYE ARE OPEN.
--- NOTE | 2018-11-13 07:40 | NUR ---
ASSESSMENT IS COMPLETED: HR IS REG,PULSES ARE STRONG X4, ABD IS SOFT WITH ACTIVE BS. BREATH SOUNDS ARE CLEAR, BILATERALLY, IV SITE IS FREE FROM REDNESS OR EDEMA.PT C/O SEEING BLACK SPOTS. HAS SUNGLASSES ON TO KEEP GLARE OFF. CALL BACON WITHIN REACH.
[2018-11-13 08:00] VITALS: BP 137/84
--- NOTE | 2018-11-13 08:30 | NUR ---
PT REMOVED EVERYTHING AND DISCONNECTED THE IV TO USE THE BATHROOM. THEN RECONNECTED SELF.
--- NOTE | 2018-11-13 09:00 | NUR ---
COUNCILED PT RE: DISCONNECTING THE IV AND TELE MONITOR. EXPLAINED THAT HE IS WOBBLY ON HIS FEET , NEEDS TO CALL WHEN HE HAS TO USE THE BATHROOM. STATED" I PROMISED THE OTHER LADY THAT I WOULD CALL BEFORE GOING TO THE BATHROOM".
[2018-11-13 10:00] VITALS: BP 150/87
--- NOTE | 2018-11-13 10:55 | NUR ---
IN TO VISIT WITH PT. WILL SEND HIM TO MED/SURG, INCREASE THE DIET. MEDICATION FOR HAVING A BM. PT INQUIRED WHAT THE DR WAS GOING TO DO. EXPLAINED ABOUT GOING TO MED/SURG, AND THEN HE CAN WALK AROUND MORE WELL DIET CHANGE. VERBALIZED UNDERSTANDING.
--- NOTE | 2018-11-13 11:45 | NUR ---
CALLED OUT TO THE DESK STATING " I AM CHOKING". WENT IN AND PT WAS TRYING TO GET FOOD OUT OF HIS MOUTH, BY STICKING HIS FINGERS DOWN HIS THROAT AND GAGGING. THEN DRANK A LITTLE WATER AND FINALLY CLEARED HIS THROAT. THEN HE SHOVED THE TABLE WITH HIS TRAY ON IT SPILLING THE TEA, STATED' I TOLD YOU THAT I CAN'T EAT REGULAR FOOD".CALLED RE: THE ISSUES WITH FOOD., DIET ORDER WAS CHANGED.
--- NOTE | 2018-11-13 11:48 | NUR ---
PT ATTEMPTED TO EAT , AND CALLED STATING: I AM CHOKING, WAS GETTING RID OF BROCCILI. ASKED IF THAT WAS ALL HE CONSUMED. STATED" I ATE 1 BROCCILI, AND 1 PIECE OF MEAT AND THEN IT WOULDN'T GO DOWN". EXPRESSED THAT HE HAS HAD THIS ALL OF HIS LIFE WITH A SMALL ESOPHAGUS, AND WAS TOLD TO EAT SMALL MEALS AND TAKE HIS TIME. ABLE TO TOLERATE LIQUIDS. ONLY WANTS WATER, PUSHED THE TRAY AWAY.
--- NOTE | 2018-11-13 11:56 | NUR ---
NOTIFIED AND DIET IS BEING CHANGED
[2018-11-13 12:00] VITALS: BP 146/87
--- NOTE | 2018-11-13 12:00 | NUR ---
PT IS SITTING IN BED , DRINKING HIS WATER.
--- NOTE | 2018-11-13 12:30 | NUR ---
IV CAME OUT. UPON ENTERING PT STATED" I MOVED TO ANSWER THE PHONE AND THE IV CAME OUT". I DON'T WANT IT BACK IN AND I WILL GO TO ANOTHER HOSPITAL , NOTHING IS BEING DONE FOR ME HERE, I STILL HAVE PAIN IN MY HEAD"
--- NOTE | 2018-11-13 12:30 | NUR ---
IV CAME OUT. PT INFORMED STAFF DUE TO MOVEMENT WHEN HE ANSWERED THE PHONE.
--- NOTE | 2018-11-13 12:43 | NUR ---
CALLED DR. SMITH RE: PT WANTING TO SIGN OUT AMA. STATED" OK" PT ASKED CAN HE GIVE ME A SCRIPT FOR SOMETHING TO MAKE ME STOP DRINKING. EXPLAINED THAT WE DON'T HAVE THAT HERE. HE THEN STATED" 11 YEARS AGO , I WAS IN A REHAB AND COMPLETED, THEY GAVE ME MEDICATIONS FOR PAIN OR WHATEVER I WAS THERE FOR AND THEN SENT ME HOME" THEN ASKED WHAT THIS ACTIVATED SLUDGE OPERATOR WOULD DO IN THIS SITUATION, EXPLAINED THAT I CAN'T ANSWER THAT DUE TO I DON'T DRINK. PT THEN SAID OK I WILL SIGN THE PAPER. GAVE HIM THE NUMBER FOR A FRIEND TO CALL. PHARMACY CAME IN AND BROUGHT PT'S OWN MEDICATION TO TAKE HOME. PT ALSO INQUIRED ABOUT A ALCOHOL DETOX CENTER, SUGGESTED HE CHECK IN PT KARMA.
--- NOTE | 2018-11-13 12:55 | NUR ---
PT SIGNED THE AMA PAPERS AND WALKED OUT OF THE UNIT WITH BELONGINGS. AND PHONE NUMBER FOR A FRIEND. ATTEMPTED TO CALL [facility]IGHWAY SAFETY ENGINEER TO INFORM OF AMA.
--- NOTE | 2018-11-13 13:15 | NUR ---
PT WENT TO MED/SURG AND SOUGHT OUT INQUIRED ABOUT MEDICATIONS AND HIM NOT SPEAKING TO HIM. WAS ESCORTED OUT OF THE BUILDING BY SECURITY,
== END 2018-11-13 13:33 | disposition left against medical advice (07) | DRG 434 ==
LOC: ED 16:36 → ED-I 19:20 → ED 19:36 → ICU 19:37
PROVIDERS: Family Medicine; ADMIT Internal Medicine Nephrology; ATTEND Internal Medicine Nephrology
DX: K70.40 Alcoholic hepatic failure without coma (principal); F10.229 Alcohol dependence with intoxication, unspecified; K70.10 Alcoholic hepatitis without ascites; F41.8 Other specified anxiety disorders; G40.909 Epilepsy, unspecified, not intractable, without status epilepticus; M19.90 Unspecified osteoarthritis, unspecified site; G89.29 Other chronic pain; K59.00 Constipation, unspecified; Y90.8 Blood alcohol level of 240 mg/100 ml or more; Z79.899 Other long term (current) drug therapy; Z79.891 Long term (current) use of opiate analgesic
CPT/HCPCS: J2060

== ENCOUNTER 2018-11-18 19:34 | Emergency (ER) | payer SELFPAY ==
[~2018-11-18] VITALS: Ht 180.3 cm; Wt 86.3 kg
[2018-11-18 20:40] VITALS: BP 133/98
== END 2018-11-18 20:40 | disposition short-term general hospital (02) | DRG 395 ==
LOC: ED 19:34
DX: T18.128A Food in esophagus causing other injury, initial encounter (principal); G40.909 Epilepsy, unspecified, not intractable, without status epilepticus; F41.9 Anxiety disorder, unspecified; F32.9 Major depressive disorder, single episode, unspecified; F10.20 Alcohol dependence, uncomplicated; X58.XXXA Exposure to other specified factors, initial encounter
CPT/HCPCS: J1610; J2060

== ENCOUNTER 2018-12-05 16:07 | Emergency (ER) | payer SELFPAY ==
[~2018-12-05] VITALS: Ht 180.3 cm; Wt 100.0 kg
[2018-12-05 17:23] LABS: HEMATOCRIT 41.4 % (39.0-50.0); HEMOGLOBIN 13.8 g/dl (14.0-18.0); IMMATURE GRANULOCYTES 0.4 % (0.0-5.0); MEAN CELL VOLUME 91.4 fL CALC (80.0-100.0); MEAN CORPUSCULAR HGB 30.5 pG CALC (26.0-32.0); MEAN CORPUSCULAR HGB CONC 33.3 g/L CALC (32.0-36.0); NEUT# 5.26 thou/uL (1.82-7.42); RED BLOOD COUNT 4.53 mill/uL (4.70-6.10); RED CELL DISTRI WIDTH 13.7 % (11.5-15.5)
[2018-12-05 17:35] LABS: ALKALINE PHOSPHATASE 102 u/l (38-126); ANION GAP 16 (6-22 (CALC)); BILIRUBIN, TOTAL 0.4 mg/dL (0.0-1.4); BUN 5 mg/dL (9-20); BUN/CREATININE RATIO 8 (12-20 (CALC)); CARBON DIOXIDE 23 mmol/l (22-30); CHLORIDE 101 mmol/l (95-108); CREATININE 0.6 mg/dL (0.7-1.3); GFR > 60 ML/MIN (>=60 (CALC)); GFR FOR AFR.AMER. > 60 ML/MIN (>=60 (CALC)); POTASSIUM 3.5 mmol/l (3.5-5.1); SGOT/AST 43 u/l (17-59); SODIUM 136 mmol/l (137-146); TOTAL PROTEIN 6.8 g/dL (6.3-8.2)
[2018-12-05 18:15] LABS: BARBITURATES NEGATIVE (NEGATIVE); COCAINE NEGATIVE (NEGATIVE); METHADONE POSITIVE (NEGATIVE); OXCYCODONE NEGATIVE (NEGATIVE); TETRAHYDROCANNABIONOL POSITIVE (NEGATIVE); TRICYLIC ANTIDEPRESSANTS NEGATIVE (NEGATIVE)
[2018-12-05 18:24] VITALS: BP 111/82
[2018-12-05] MEDS ORDERED: DELTASONE20 MG PO (18:24)
[2018-12-05] MEDS ORDERED: EPIPEN 2-P0.3 MG/0.3 SC (18:26)
== END 2018-12-05 18:40 | disposition home or self-care (01) | DRG 918 ==
LOC: ED 16:07
PROVIDERS: Emergency Medicine
DX: T63.421A Toxic effect of venom of ants, accidental (unintentional), initial encounter (principal); R06.02 Shortness of breath; L50.9 Urticaria, unspecified; Y93.89 Activity, other specified; Y92.838 Other recreation area as the place of occurrence of the external cause

== ENCOUNTER 2019-01-07 18:01 | Emergency (ER) | payer SELFPAY ==
[~2019-01-07] VITALS: Ht 180.3 cm; Wt 70.0 kg
[~2019-01-07 18:01] MED LIST changes: +DELTASONE20 MG PO; +EPIPEN 2-P0.3 MG/0.3 SC
[2019-01-07 19:25] VITALS: BP 126/68
== END 2019-01-07 19:25 | disposition home or self-care (01) | DRG 563 ==
LOC: ED 18:01
DX: S93.401A Sprain of unspecified ligament of right ankle, initial encounter (principal); S93.601A Unspecified sprain of right foot, initial encounter; W10.9XXA Fall (on) (from) unspecified stairs and steps, initial encounter; Y92.009 Unspecified place in unspecified non-institutional (private) residence as the place of occurrence of the external cause

== ENCOUNTER 2019-01-12 22:22 | Emergency (ER) | payer SELFPAY ==
[~2019-01-12] VITALS: Ht 180.3 cm; Wt 107.0 kg
[2019-01-12 23:12] LABS: HEMATOCRIT 39.7 % (39.0-50.0); HEMOGLOBIN 13.2 g/dl (14.0-18.0); IMMATURE GRANULOCYTES 0.5 % (0.0-5.0); MEAN CELL VOLUME 87.6 fL CALC (80.0-100.0); MEAN CORPUSCULAR HGB 29.1 pG CALC (26.0-32.0); MEAN CORPUSCULAR HGB CONC 33.2 g/L CALC (32.0-36.0); NEUT# 2.93 thou/uL (1.82-7.42); RED BLOOD COUNT 4.53 mill/uL (4.70-6.10); RED CELL DISTRI WIDTH 13.8 % (11.5-15.5)
[2019-01-12 23:25] LABS: ALBUMIN 4.3 g/dL (3.2-5.0); ALKALINE PHOSPHATASE 118 u/l (38-126); BILIRUBIN, TOTAL 0.4 mg/dL (0.0-1.4); BUN 6 mg/dL (9-20); BUN/CREATININE RATIO 10 (12-20 (CALC)); CARBON DIOXIDE 23 mmol/l (22-30); CHLORIDE 101 mmol/l (95-108); CREATININE 0.6 mg/dL (0.7-1.3); ETHYL ALCOHOL 257 mg/dl (0-30); GFR > 60 ML/MIN (>=60 (CALC)); GFR FOR AFR.AMER. > 60 ML/MIN (>=60 (CALC)); SGOT/AST 48 u/l (17-59); SODIUM 138 mmol/l (137-146); TOTAL PROTEIN 7.4 g/dL (6.3-8.2)
[2019-01-12 23:33] LABS: ANION GAP 18 (6-22 (CALC)); POTASSIUM 4.3 mmol/l (3.5-5.1)
[2019-01-12 23:45] VITALS: BP 135/73
== END 2019-01-12 23:45 | disposition left against medical advice (07) | DRG 914 ==
LOC: ED 22:22
PROVIDERS: Emergency Medicine
DX: S09.93XA Unspecified injury of face, initial encounter (principal); R22.0 Localized swelling, mass and lump, head; Z91.19 Patient's noncompliance with other medical treatment and regimen; F10.129 Alcohol abuse with intoxication, unspecified; Y90.8 Blood alcohol level of 240 mg/100 ml or more; Y04.8XXA Assault by other bodily force, initial encounter; Y92.29 Other specified public building as the place of occurrence of the external cause

== ENCOUNTER 2019-02-26 18:10 | Emergency (ER) | payer SELFPAY ==
[~2019-02-26] VITALS: Ht 180.3 cm; Wt 79.0 kg
[2019-02-26 18:53] LABS: HEMATOCRIT 39.8 % (39.0-50.0); HEMOGLOBIN 13.4 g/dl (14.0-18.0); IMMATURE GRANULOCYTES 0.4 % (0.0-5.0); MEAN CORPUSCULAR HGB 28.3 pG CALC (26.0-32.0); MEAN CORPUSCULAR HGB CONC 33.7 g/L CALC (32.0-36.0); NEUT# 4.86 thou/uL (1.82-7.42); RED BLOOD COUNT 4.74 mill/uL (4.70-6.10); RED CELL DISTRI WIDTH 13.9 % (11.5-15.5)
[2019-02-26 19:32] LABS: ALBUMIN 4.8 g/dL (3.2-5.0); ALKALINE PHOSPHATASE 84 u/l (38-126); ANION GAP 18 (6-22 (CALC)); BILIRUBIN, TOTAL 0.4 mg/dL (0.0-1.4); BUN 4 mg/dL (9-20); BUN/CREATININE RATIO 4 (12-20 (CALC)); CARBON DIOXIDE 21 mmol/l (22-30); CHLORIDE 100 mmol/l (95-108); CREATININE 0.8 mg/dL (0.7-1.3); GFR > 60 ML/MIN (>=60 (CALC)); GFR FOR AFR.AMER. > 60 ML/MIN (>=60 (CALC)); POTASSIUM 4.3 mmol/l (3.5-5.1); SGOT/AST 30 u/l (17-59); SODIUM 135 mmol/l (137-146); TOTAL PROTEIN 7.8 g/dL (6.3-8.2)
[2019-02-26 19:35] LABS: ETHYL ALCOHOL 81 mg/dl (0-30)
[2019-02-26 20:06] LABS: COCAINE NEGATIVE (NEGATIVE); TETRAHYDROCANNABIONOL POSITIVE (NEGATIVE)
[2019-02-26 20:07] LABS: BARBITURATES NEGATIVE (NEGATIVE); METHADONE POSITIVE (NEGATIVE); OXCYCODONE NEGATIVE (NEGATIVE); TRICYLIC ANTIDEPRESSANTS NEGATIVE (NEGATIVE)
[2019-02-26] MEDS ORDERED: ATIVAN1 MG PO (21:03)
[2019-02-26 21:33] VITALS: BP 140/88
== END 2019-02-26 21:28 | disposition designated cancer center or children's hospital (05) | DRG 880 ==
LOC: ED 18:10
PROVIDERS: Emergency Medicine
DX: R45.851 Suicidal ideations (principal); F32.9 Major depressive disorder, single episode, unspecified; F19.10 Other psychoactive substance abuse, uncomplicated; F10.20 Alcohol dependence, uncomplicated; G40.909 Epilepsy, unspecified, not intractable, without status epilepticus; F41.9 Anxiety disorder, unspecified
CPT/HCPCS: S0166

== ENCOUNTER 2019-03-16 14:27 | Emergency (ER) | payer SELFPAY ==
[~2019-03-16] VITALS: Ht 180.3 cm; Wt 85.9 kg
[~2019-03-16 14:27] MED LIST changes: +ATIVAN1 MG PO
[2019-03-16] MEDS ORDERED: BACTRIM DS1 TAB PO (14:47)
[2019-03-16] MEDS ORDERED: CEPHALEXIN500 M1 PO (14:47)
[2019-03-16 15:36] VITALS: BP 139/98
== END 2019-03-16 15:35 | disposition home or self-care (01) | DRG 918 ==
LOC: ED 14:27
DX: T63.461A Toxic effect of venom of wasps, accidental (unintentional), initial encounter (principal); L03.116 Cellulitis of left lower limb; M79.662 Pain in left lower leg; Y92.009 Unspecified place in unspecified non-institutional (private) residence as the place of occurrence of the external cause

== ENCOUNTER 2019-07-06 11:29 | Emergency (ER) | payer SELFPAY ==
[~2019-07-06] VITALS: Ht 180.3 cm; Wt 90.0 kg
[~2019-07-06 11:29] MED LIST changes: +BACTRIM DS1 TAB PO; +CEPHALEXIN500 M1 PO
[2019-07-06 12:25] VITALS: BP 150/103
== END 2019-07-06 12:36 | disposition home or self-care (01) | DRG 880 ==
LOC: ED 11:29
DX: F41.9 Anxiety disorder, unspecified (principal); F32.9 Major depressive disorder, single episode, unspecified; G40.909 Epilepsy, unspecified, not intractable, without status epilepticus; F17.210 Nicotine dependence, cigarettes, uncomplicated; Z63.4 Disappearance and death of family member
CPT/HCPCS: J2060

== ENCOUNTER 2019-11-25 | Emergency (ER) | payer SELFPAY | END 2019-11-25 15:28 | disposition home or self-care (01) | DRG 605 | PROC: 0HQFXZZ Repair Right Hand Skin, External Approach (ICD-10-PCS; principal; 2019-11-25) | DX: S61.210A Laceration without foreign body of right index finger without damage to nail, initial encounter (principal); F17.200 Nicotine dependence, unspecified, uncomplicated; W26.0XXA Contact with knife, initial encounter; Y93.G1 Activity, food preparation and clean up; Y92.000 Kitchen of unspecified non-institutional (private) residence as the place of occurrence of the external cause ==

== ENCOUNTER 2019-12-06 | Emergency (ER) | payer SELFPAY ==
[2019-12-06] MEDS ORDERED: METHADONE5 M1 PO (11:30)
[2019-12-06] MEDS ORDERED: XANAX1 MG PO (11:31)
[2019-12-06] MEDS ORDERED: TORADOL PO (13:07)
== END 2019-12-06 13:15 | disposition home or self-care (01) | DRG 563 ==
DX: S93.401A Sprain of unspecified ligament of right ankle, initial encounter (principal); S93.601A Unspecified sprain of right foot, initial encounter; F17.210 Nicotine dependence, cigarettes, uncomplicated; W01.0XXA Fall on same level from slipping, tripping and stumbling without subsequent striking against object, initial encounter; Y92.512 Supermarket, store or market as the place of occurrence of the external cause

== ENCOUNTER 2020-01-01 17:54 | Inpatient (IN) | payer SELFPAY ==
[~2020-01-01] VITALS: Ht 180.3 cm; Wt 87.0 kg
[~2020-01-01 17:54] MED LIST changes: +METHADONE5 M1 PO; +TORADOL PO; +XANAX1 MG PO
[2020-01-01 19:05] LABS: HEMATOCRIT 40.9 % (39.0-50.0); HEMOGLOBIN 13.6 g/dl (14.0-18.0); IMMATURE GRANULOCYTES 0.6 % (0.0-5.0); MEAN CELL VOLUME 83.3 fL CALC (80.0-100.0); MEAN CORPUSCULAR HGB 27.7 pG CALC (26.0-32.0); MEAN CORPUSCULAR HGB CONC 33.3 g/dL CAL (32.0-36.0); NEUT# 3.41 thou/uL (1.82-7.42); RED BLOOD COUNT 4.91 mill/uL (4.70-6.10); RED CELL DISTRI WIDTH 15.1 % (11.5-15.5)
[2020-01-01 19:20] LABS: PROTHROMBIN TIME 10.4 SECONDS (9.0-12.5)
[2020-01-01 19:23] LABS: ALBUMIN 4.4 g/dL (3.2-5.0); ANION GAP 15 (6-22 (CALC)); BUN 5 mg/dL (9-20); BUN/CREATININE RATIO 9 (12-20 (CALC)); CARBON DIOXIDE 21 mmol/l (22-30); CHLORIDE 108 mmol/l (95-108); CREATININE 0.6 mg/dL (0.7-1.3); GFR > 60 ML/MIN (>=60 (CALC)); GFR FOR AFR.AMER. > 60 ML/MIN (>=60 (CALC)); LIPASE 68 u/l (23-300); POTASSIUM 4.4 mmol/l (3.5-5.1); SODIUM 140 mmol/l (137-146); TOTAL PROTEIN 8.3 g/dL (6.3-8.2)
[2020-01-01 19:37] LABS: BILIRUBIN, TOTAL 0.7 mg/dL (0.0-1.4); SGOT/AST 60 u/l (17-59)
[2020-01-01 19:38] LABS: ALKALINE PHOSPHATASE 133 u/l (38-126); ETHYL ALCOHOL 314 mg/dl (0-30); MAGNESIUM 2.1 mg/dL (1.6-2.3)
[2020-01-01 19:53] LABS: TSH, 3RD GENERATION 2.58 uIU/mL (0.47 - 4.68)
[2020-01-01 21:03] LABS: URINE BILIRUBIN - DIPSTICK NEGATIVE (NEGATIVE); URINE BLOOD DIPSTICK NEGATIVE (NEGATIVE); URINE COLOR YELLOW; URINE GLUCOSE - DIPSTICK NEGATIVE (NEGATIVE); URINE KETONE NEGATIVE (NEGATIVE); URINE LEUK ESTERASE NEGATIVE (NEGATIVE); URINE NITRITE - DIPSTICK NEGATIVE (Negative); URINE PROTEIN - DIPSTICK NEGATIVE (NEG-TRACE); URINE UROBILINOGEN - DIPSTICK 0.2 E.U./dL (0.2)
[2020-01-01 21:09] LABS: COCAINE NEGATIVE (NEGATIVE); METHADONE POSITIVE (NEGATIVE); TETRAHYDROCANNABIONOL NEGATIVE (NEGATIVE)
[2020-01-01 21:10] LABS: BARBITURATES NEGATIVE (NEGATIVE); OXCYCODONE NEGATIVE (NEGATIVE); TRICYLIC ANTIDEPRESSANTS POSITIVE (NEGATIVE)
[2020-01-01 23:30] VITALS: BP 102/58
[2020-01-01 23:45] VITALS: BP 101/58
[2020-01-02] VITALS (14 sets, daily range): BP systolic 100–131; BP diastolic 58–75
[2020-01-02 05:20] LABS: HEMATOCRIT 38.7 % (39.0-50.0); IMMATURE GRANULOCYTES 0.3 % (0.0-5.0); MEAN CELL VOLUME 83.8 fL CALC (80.0-100.0); MEAN CORPUSCULAR HGB 28.1 pG CALC (26.0-32.0); MEAN CORPUSCULAR HGB CONC 33.6 g/dL CAL (32.0-36.0); NEUT# 2.87 thou/uL (1.82-7.42); RED BLOOD COUNT 4.62 mill/uL (4.70-6.10); RED CELL DISTRI WIDTH 15.2 % (11.5-15.5)
[2020-01-02 05:43] LABS: ANION GAP 13 (6-22 (CALC)); BUN 4 mg/dL (9-20); BUN/CREATININE RATIO 7 (12-20 (CALC)); CARBON DIOXIDE 20 mmol/l (22-30); CHLORIDE 111 mmol/l (95-108); CREATININE 0.6 mg/dL (0.7-1.3); GFR > 60 ML/MIN (>=60 (CALC)); GFR FOR AFR.AMER. > 60 ML/MIN (>=60 (CALC)); MAGNESIUM 1.8 mg/dL (1.6-2.3); POTASSIUM 3.8 mmol/l (3.5-5.1); SODIUM 140 mmol/l (137-146)
[2020-01-02] MEDS ORDERED: ZITHROMAX250 MG PO (08:41)
[2020-01-02] MEDS ORDERED: PROAIR HFA108 MCG/AC IN (09:02)
== END 2020-01-02 09:20 | disposition home or self-care (01) | DRG 896 ==
LOC: ED 17:54 → ED-I 20:38 → ED 20:55 → ED-I 20:56 → ICU 20:56
PROVIDERS: Family Medicine; ADMIT Internal Medicine; ATTEND Internal Medicine
PROC: 0BH17EZ Insertion of Endotracheal Airway into Trachea, Via Natural or Artificial Opening (ICD-10-PCS; principal; 2020-01-01)
PROC: 5A1935Z Respiratory Ventilation, Less than 24 Consecutive Hours (ICD-10-PCS; 2020-01-01)
PROC: 0T9B70Z Drainage of Bladder with Drainage Device, Via Natural or Artificial Opening (ICD-10-PCS; 2020-01-01)
DX: F10.229 Alcohol dependence with intoxication, unspecified (principal); J96.90 Respiratory failure, unspecified, unspecified whether with hypoxia or hypercapnia; G31.2 Degeneration of nervous system due to alcohol; G40.909 Epilepsy, unspecified, not intractable, without status epilepticus; F32.9 Major depressive disorder, single episode, unspecified; F41.9 Anxiety disorder, unspecified; J45.909 Unspecified asthma, uncomplicated; G89.4 Chronic pain syndrome; F17.200 Nicotine dependence, unspecified, uncomplicated; Y90.8 Blood alcohol level of 240 mg/100 ml or more; Z79.891 Long term (current) use of opiate analgesic
CPT/HCPCS: J1650

== ENCOUNTER 2020-01-16 | Emergency (ER) | payer SELFPAY ==
[~2020-01-16] MED LIST changes: +PROAIR HFA108 MCG/AC IN; +ZITHROMAX250 MG PO
[2020-01-16] MEDS ORDERED: GABAPENTIN100 MG PO (17:11)
[2020-01-16 17:18] LABS: HEMATOCRIT 37.8 % (39.0-50.0); HEMOGLOBIN 12.7 g/dl (14.0-18.0); IMMATURE GRANULOCYTES 0.2 % (0.0-5.0); MEAN CELL VOLUME 83.3 fL CALC (80.0-100.0); MEAN CORPUSCULAR HGB CONC 33.6 g/dL CAL (32.0-36.0); NEUT# 4.87 thou/uL (1.82-7.42); RED BLOOD COUNT 4.54 mill/uL (4.70-6.10); RED CELL DISTRI WIDTH 15.4 % (11.5-15.5)
[2020-01-16 17:31] LABS: ALKALINE PHOSPHATASE 90 u/l (38-126); ANION GAP 15 (6-22 (CALC)); BUN 7 mg/dL (9-20); BUN/CREATININE RATIO 11 (12-20 (CALC)); CARBON DIOXIDE 24 mmol/l (22-30); CHLORIDE 105 mmol/l (95-108); CREATININE 0.6 mg/dL (0.7-1.3); ETHYL ALCOHOL 290 mg/dl (0-30); GFR > 60 ML/MIN (>=60 (CALC)); GFR FOR AFR.AMER. > 60 ML/MIN (>=60 (CALC)); POTASSIUM 4.1 mmol/l (3.5-5.1); SGOT/AST 51 u/l (17-59); SODIUM 139 mmol/l (137-146); TOTAL PROTEIN 7.3 g/dL (6.3-8.2)
[2020-01-16 17:32] LABS: BILIRUBIN, TOTAL 0.4 mg/dL (0.0-1.4)
== END 2020-01-16 20:28 | disposition home or self-care (01) | DRG 897 ==
DX: F10.229 Alcohol dependence with intoxication, unspecified (principal); F32.9 Major depressive disorder, single episode, unspecified; F41.9 Anxiety disorder, unspecified; G40.909 Epilepsy, unspecified, not intractable, without status epilepticus; F17.200 Nicotine dependence, unspecified, uncomplicated

== ENCOUNTER 2020-03-24 18:05 | Observation (INO) | payer SELFPAY ==
[~2020-03-24] VITALS: Ht 177.8 cm; Wt 87.1 kg
[~2020-03-24 18:05] MED LIST changes: +GABAPENTIN100 MG PO
--- NOTE | 2020-03-24 18:05 | NUR ---
PT TO ROOM VIA EMS FOR BEDSIDE TRIAGE
--- NOTE | 2020-03-24 18:24 | NUR ---
PT YELLING AND CURSING AT STAFF; C/O NECK PAIN; MEDICATED PER MAR; MONITORING DEVICES IN PLACE; VSS; WILL CONTINUE TO MONITOR
[2020-03-24 18:55] LABS: HEMATOCRIT 36.1 % (39.0-50.0); HEMOGLOBIN 12.2 g/dl (14.0-18.0); IMMATURE GRANULOCYTES 0.3 % (0.0-5.0); MEAN CELL VOLUME 86.6 fL CALC (80.0-100.0); MEAN CORPUSCULAR HGB 29.3 pG CALC (26.0-32.0); MEAN CORPUSCULAR HGB CONC 33.8 g/dL CAL (32.0-36.0); NEUT# 3.65 thou/uL (1.82-7.42); RED BLOOD COUNT 4.17 mill/uL (4.70-6.10); RED CELL DISTRI WIDTH 14.6 % (11.5-15.5)
--- NOTE | 2020-03-24 19:05 | NUR ---
REPORT TO DWIGHT, RN
[2020-03-24 19:13] LABS: ALBUMIN 4.2 g/dL (3.2-5.0); ALKALINE PHOSPHATASE 113 u/l (38-126); ANION GAP 13 (6-22 (CALC)); BILIRUBIN, TOTAL 0.3 mg/dL (0.0-1.4); BUN 6 mg/dL (9-20); BUN/CREATININE RATIO 8 (12-20 (CALC)); CARBON DIOXIDE 27 mmol/l (22-30); CHLORIDE 102 mmol/l (95-108); CREATININE 0.8 mg/dL (0.7-1.3); GFR > 60 ML/MIN (>=60 (CALC)); GFR FOR AFR.AMER. > 60 ML/MIN (>=60 (CALC)); LIPASE 80 u/l (23-300); POTASSIUM 4.1 mmol/l (3.5-5.1); SGOT/AST 36 u/l (17-59); SODIUM 138 mmol/l (137-146); TOTAL PROTEIN 7.4 g/dL (6.3-8.2)
[2020-03-24 19:16] LABS: ACT PARTIAL THROMBO TIME 27.6 SECONDS (20.0-32.5)
[2020-03-24 19:18] LABS: AMYLASE < 30 u/l (30-110)
--- NOTE | 2020-03-24 19:21 | NUR ---
PT CLIMBED OUT OF BED AGAINST OUR WISHES. PT ASSISTED BACK TO BED AND GIVEN URINAL. PT DID NOT URINATE. EQUIP RE-ATTACHED.
[2020-03-24 19:25] LABS: ETHYL ALCOHOL 337 mg/dl (0-30)
--- NOTE | 2020-03-24 19:32 | NUR ---
PT UP OUT OF BED AGAIN. LEANING AGAINST BOTTOM OF BED WITH URINAL. 5 MIN LATER PT BACK IN BED AND URINAL ON FLOOR...EMPTY. LARGE AMT OF URINE AT SIDE OF BED. PT LOUD AND NON-COMPLIANT. WANTS US TO CALL SOME HOSPITAL IN THE [facility]S. AND TALK TO THE DR THERE ABOUT MEDICATING HIM FOR HIS 9 YEAR OLD CERVICLE FX. COMPLAINING ABOUT POOR TREATMENT HERE.
--- NOTE | 2020-03-24 20:02 | NUR ---
RETURNED FROM CT VIA STRETCHER...MARQUES.
--- NOTE | 2020-03-24 20:42 | NUR ---
PT RESTING. VSS EXCEPT SAT AT 91% WITH HOME N-95 ON. 4 LPM BLOW BY UNDER MASK. PT SLEEPING. AROUSES EASILY. SIDE RAILS UP/CALL LIGHT AND NOW SITTER AT BEDSIDE.
--- NOTE | 2020-03-24 21:43 | NUR ---
AWAITING ADMISSION. PT REQUESTED WATER AND THEN WANTED ASA FOR "CRACKED TOOTH."
--- NOTE | 2020-03-24 21:51 | NUR ---
PT GIVEN WATER AND ASA. ASKED THAT FATHER BE CALLED AND ADVISED OF ADMISSION FOR "BACK PAIN." FATHER NOTIFIED.
--- NOTE | 2020-03-24 22:06 | NUR ---
REPORT TO SELINA. PT ICU # 5
--- NOTE | 2020-03-24 22:25 | NUR ---
PT TO FLOOR VIA STRETCHER WITH LONNIE (FARHANA GREENE). PORTABLE MONITOR. TRANSFERRED TO BED.
--- NOTE | 2020-03-24 22:30 | NUR ---
PATIENT ARRVS VIA ER STRETCHER ACCOMPANIED BY NURSE AND SITTER, IS ABLE TO SCOOT TO INTO BED. GETS UP TO USE RESTROOM. URINE SAMPLE OBTAINED. PATIENT IS ALERT AND ORIENTED X4. PT DOES BECOME RESTLESS. ASKS QUESTIONS AND MAKES REMARKS NOT REGARDING HIS PLAN OF CARE. PT REPORTS HE KNOWS WHAT MEDICTAIONS HE TAKES AND DOSAGES BUT WHEN I ASK HIM WHAT, HE DOES NOT KNOW WHY HE IS ON THAT MEDICATION OR STATES THE WRONG REASONS. 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 PT REPORTS HE DRINK 3 BEERS PER DY BUT THAT HE OVER DRANK DUE TO HE FOUND OUT HIS MOM IS DETOXING FOR THE THIRTEENTH TIME. PT DOES BECOME AGITATED AT TIMES. IV ON RFA IS INTACT, FLUSHES PROPERLY. AFEBRILE. BP WNL. SR ON TELEMETRY, HR RANGES 60'S. SATS 98% ON RA, NO SOB NOTED ONLY INSPIRATORY AND EXPIRATORY WHEEZING NOTED UPON AUSCULATION. CIWA SCORE IS 9. C/O OF NECK AND HEADCHE PAIN, RATES 10. SITTER AT BEDSIDE. SELF REPOSITIONS. ADMISSION COMPLETED. CALL LIGHT WITHIN REACH.
[2020-03-24 22:45] VITALS: BP 129/70
[2020-03-24 23:00] VITALS: BP 121/67
[2020-03-24 23:15] VITALS: BP 112/60
[2020-03-24 23:30] VITALS: BP 113/55
[2020-03-24 23:45] VITALS: BP 114/58
[2020-03-24 23:51] LABS: URINE BILIRUBIN - DIPSTICK NEGATIVE (NEGATIVE); URINE BLOOD DIPSTICK NEGATIVE (NEGATIVE); URINE COLOR YELLOW; URINE GLUCOSE - DIPSTICK NEGATIVE (NEGATIVE); URINE KETONE NEGATIVE (NEGATIVE); URINE LEUK ESTERASE NEGATIVE (NEGATIVE); URINE NITRITE - DIPSTICK NEGATIVE (Negative); URINE PROTEIN - DIPSTICK NEGATIVE (NEG-TRACE); URINE SPECIFIC GRAVITY <=1.005; URINE UROBILINOGEN - DIPSTICK 0.2 E.U./dL (0.2)
[2020-03-25] VITALS: BP 110/56
--- NOTE | 2020-03-25 00:20 | NUR ---
CALLED AND SPOKE TO DR PAYNE TO NOTIFY IF PATIENT COULD HAVE BREATHING TX DUE TO WHEEZING THROUGH OUT LUNGS BILATERALLY, ALSO PT COMPLAINED OF PAIN WHEN HE FIRST GOT UP HERE, NEW ORDERS RECEIVED.
--- NOTE | 2020-03-25 00:46 | NUR ---
PT AWAKENS EASILY. PT REUQESTS FOOD TO EAT. SNACKS PROVIDED AND ALEX XIOMY. PT NOW SITS UP IN BED TO EAT. NO ACUTE DISTRESS SHOWN. COMPLAINS OF IV PUMP ALARMING, STATES, " GOOD THING YOU STOPPED IT BECAUSE I WAS GONNA TOSS IT OUT THE WINDOW." SITTER AT BEDSIDE. CALL LIGHT WITHIN REACH.
--- NOTE | 2020-03-25 00:55 | NUR ---
PT REFUSES PRN BREATHING TX.
[2020-03-25 01:00] VITALS: BP 100/68
[2020-03-25 02:00] VITALS: BP 105/56
[2020-03-25 03:00] VITALS: BP 100/61
[2020-03-25 04:00] VITALS: BP 114/73
--- NOTE | 2020-03-25 04:53 | NUR ---
PATIENT DECIDES HE WANTS TO LEAVE AMA DUE TO HE NEEDS TO GO TO [facility] THAT HE GOES TO EVERYDAY AND HE ALSO REPORTS HIS DAD IS GOING TO GET SURGERY THIS MORNING. HE HAS SPOKEN TO HIS DAD ON THE PHONE ALREADY WHICH HE IS ON HIS WAY HERE. I CALLED AND SPOKE TO DR PAYNE TO NOTIFY AND DR PAYNE ORDERED FOR ANOTHER BLOOD ALCOHOL LEVEL. I HAVE DRAWN THE BLOOD AND AWAITING RESULTS. PT IS NOW DRESSING UP.
--- NOTE | 2020-03-25 05:16 | NUR ---
IV TAKEN OUT. PT HAS ALL OF HIS BELONGINGS. LEAD SECURITY OFFICER CRYSTAL AND SECURITY WILL WALK HIM OUT TO ER EXIT, I DID SPEAK TO HIS FATHER WHO IS OUTSIDE WAITING FOR HIM. PT IN NO ACUTE DISTRESS, ABLE TO WALK WITH NO DIFFICULTY.
== END 2020-03-25 05:16 | disposition left against medical advice (07) | DRG 894 ==
LOC: ED 18:05 → ED-I 19:08 → ED 20:48 → ED-I 20:49 → ICU 22:06
PROVIDERS: ADMIT Internal Medicine; ATTEND Internal Medicine
DX: F10.229 Alcohol dependence with intoxication, unspecified (principal); M54.2 Cervicalgia; S40.812A Abrasion of left upper arm, initial encounter; S40.811A Abrasion of right upper arm, initial encounter; S80.812A Abrasion, left lower leg, initial encounter; S80.811A Abrasion, right lower leg, initial encounter; S30.811A Abrasion of abdominal wall, initial encounter; J44.9 Chronic obstructive pulmonary disease, unspecified; F17.200 Nicotine dependence, unspecified, uncomplicated; V18.0XXA Pedal cycle driver injured in noncollision transport accident in nontraffic accident, initial encounter; Z20.828 Contact with and (suspected) exposure to other viral communicable diseases
CPT/HCPCS: J1650; J2060; Q9967

== ENCOUNTER 2020-04-02 18:19 | Inpatient (IN) | payer SELFPAY ==
[~2020-04-02] VITALS: Ht 177.8 cm; Wt 81.0 kg
--- NOTE | 2020-04-02 18:19 | NUR ---
PT WHEELED TO ROOM VIA WHEELCHAIR AND IS UNRESPONSIVE. PT RESONDS TO PAINFUL STIMULI.
--- NOTE | 2020-04-02 18:28 | NUR ---
PREPARING INTUBATION. 1828 20 MG OF ETOMIDATE IVP BY DR BUSTAMANTE 1829 100MG OF ROCURONIUM IVP BY KEKE HOLLOWAY RN 7.[address] BY [address] BUSTAMANTE WITH NO DIFFICULTY. POSITIVE COLOR CHANGE AND BILATERAL BREATH SOUNDS AUSCULTATED. TUBE 22 AT THE LIP AND SECURED BY COMMERCIAL TUBE [place]. PROPOFOL INITIATED AT 5 MCG/KG/MIN AT 1831 18F OG PLACED BY DR BUSTAMANTE AT 1833. PLACEMENT CONFIRMED BY AUSCULTATION AND ASPIRATION OF STOMACH CONTENTS. PROPOFOL BOLUS OF 5 MG GIVEN IVP BY DR BUSTAMANTE AT 183.
[2020-04-02 18:38] LABS: HEMATOCRIT 39.7 % (39.0-50.0); HEMOGLOBIN 13.2 g/dl (14.0-18.0); IMMATURE GRANULOCYTES 0.5 % (0.0-5.0); MEAN CELL VOLUME 87.4 fL CALC (80.0-100.0); MEAN CORPUSCULAR HGB 29.1 pG CALC (26.0-32.0); MEAN CORPUSCULAR HGB CONC 33.2 g/dL CAL (32.0-36.0); NEUT# 3.84 thou/uL (1.82-7.42); RED BLOOD COUNT 4.54 mill/uL (4.70-6.10); RED CELL DISTRI WIDTH 14.8 % (11.5-15.5)
--- NOTE | 2020-04-02 18:40 | NUR ---
DR BUSTAMANTE AT BEDSIDE FOR CENTRAL LINE PLACEMENT;
[2020-04-02 18:53] LABS: ALBUMIN 4.3 g/dL (3.2-5.0); ALKALINE PHOSPHATASE 109 u/l (38-126); ANION GAP 16 (6-22 (CALC)); BILIRUBIN, TOTAL 0.4 mg/dL (0.0-1.4); BUN 7 mg/dL (9-20); BUN/CREATININE RATIO 9 (12-20 (CALC)); CARBON DIOXIDE 22 mmol/l (22-30); CHLORIDE 102 mmol/l (95-108); CREATININE 0.7 mg/dL (0.7-1.3); ETHYL ALCOHOL 248 mg/dl (0-30); GFR > 60 ML/MIN (>=60 (CALC)); GFR FOR AFR.AMER. > 60 ML/MIN (>=60 (CALC)); POTASSIUM 4.2 mmol/l (3.5-5.1); SGOT/AST 44 u/l (17-59); SODIUM 136 mmol/l (137-146); TOTAL PROTEIN 7.8 g/dL (6.3-8.2)
--- NOTE | 2020-04-02 19:00 | NUR ---
REPORT GIVEN TO MARI WILLINGHAM
--- NOTE | 2020-04-02 19:01 | NUR ---
RESPIRATORY CALLED TO ER. PATIENT INTUBATED WITH A 7.5 ETT AT 22 CM OF THE LIPS. ETT PLACEMENT VERIFIED BY LISTENING TO LUNDS, CO2 DEDECTOR, AND THEN CHEST X-RAY. PLACED ON THE VENTILATOR WITH THE FOLLOWING SETTING: AC RATE OF 15, VT 500, 5 OF PEEP AND 100% FIO2 . FIO2 DROPPED TO 60% WITH SPO2 100% ON MONITOR.
[2020-04-02 19:03] LABS: MYOGLOBIN 41 ng/mL (0 - 121)
--- NOTE | 2020-04-02 19:13 | NUR ---
RECEIVED HASND OFF REPORT SHARON CAMPBELL RN. PATIENT INTUBATED, SEDATED, TRIPLE LUMEN RIGHT IJ CENTRAL LINE IN PLACE, 18F STROUD CATH DRAINING CLEAR YELLOW URINE, 18F OG TUBE IN PLACE DRAINING STOMACH CONTENTS. PATIENT APPEARS TO BE WELL SEDATED AND COMFORTABLE AT THIS TIME. VITALS WITHIN NORMAL LIMITS.
[2020-04-02 19:31] LABS: URINE BILIRUBIN - DIPSTICK NEGATIVE (NEGATIVE); URINE BLOOD DIPSTICK NEGATIVE (NEGATIVE); URINE CLARITY CLEAR; URINE COLOR YELLOW; URINE GLUCOSE - DIPSTICK NEGATIVE (NEGATIVE); URINE KETONE NEGATIVE (NEGATIVE); URINE LEUK ESTERASE NEGATIVE (Negative); URINE NITRITE - DIPSTICK NEGATIVE (Negative); URINE PH 5.5 (4.5-8.0); URINE PROTEIN - DIPSTICK NEGATIVE (NEG-TRACE); URINE SPECIFIC GRAVITY <=1.005; URINE UROBILINOGEN - DIPSTICK 0.2 E.U./dL (0.2)
--- NOTE | 2020-04-02 20:20 | NUR ---
750CC OF CLEAR YELLOW URINE EMPTIED FROM STROUD CATH. PATIET TO GO TO CT.
--- NOTE | 2020-04-02 22:05 | NUR ---
HAND OFF REPORT GIVEN TO MARI Cuevas.
--- NOTE | 2020-04-02 22:08 | NUR ---
500CC CLEAR YELLOW URINE EMPTIED FROM STROUD FOR TRANSPORT.
--- NOTE | 2020-04-02 22:30 | NUR ---
RECEIVED INTO ICU BED 2 FROM ER VIA BED. ER NURSE MAULIK AND KAILEY/RT ACCOMPANYING PATIENT. PATIENT TRANSFERRED FROM STRETCHER TO BED WITH 2 ASISTS AND USE OF SLIDE BOARD. PATIENT BECAME RESTLESS AND SLT AGITATED WHEN TRANSFERRED TO BED. PROPOFOL INFUSION INCREASED TO 50 MCG/KG/MIN. RIJTLC IN PLACE. LR INFUSING AT 250 ML/HR. SHIFT ASSESSMENT COMPLETED. VSS. SPECIAL DIET COOK SHOWS SR.
[2020-04-02 22:45] VITALS: BP 127/76
[2020-04-02 23:00] VITALS: BP 114/60
[2020-04-02 23:15] VITALS: BP 111/60
[2020-04-02 23:30] VITALS: BP 114/60
[2020-04-03] VITALS (13 sets, daily range): BP systolic 115–157; BP diastolic 60–84
--- NOTE | 2020-04-03 01:30 | NUR ---
PATIENT ATTEMPTING TO SIT UP IN BED. TRYING TO REACH FOR ETT. SOFT WRIT RESTRAINTS REMAIN IN PLACE. ATTEMPTS TO REASSURE PATIENT WITH VOCAL CUES UNSUCCESSFUL. PROPOFOL INCREASED TO 55 MCG/KG/MIN.
--- NOTE | 2020-04-03 02:00 | NUR ---
RESTING WITH EYES CLOSED. CALM AND COOPERATIVE. VSS.
--- NOTE | 2020-04-03 03:00 | NUR ---
PATIENT AWAKE, SITTING UP IN BED, KICKING LEGS UP IN THE AIR. PATIENT GIVEN PAPER AND PEN , WRITING NOTES ASKING FOR ICE CHIPS AND POPSICLES. EXPLAINED THAT HE IS NPO UNTIL ETT AND OG T ARE REMOVED. EMOTINAL SUPPOERT AND REASSURANCE PROVIDED. PROPOFAL GTT INCREASED TO 60 MCG/KG/MIN. VSS.
--- NOTE | 2020-04-03 04:00 | NUR ---
RESTIGN CALMLY AND QUIETLY AT THIS TIME. SR ON MONITOR. VSS.
--- NOTE | 2020-04-03 05:00 | NUR ---
VSS. NO CHANGES TO REPORT.
[2020-04-03 06:16] LABS: HEMATOCRIT 35.4 % (39.0-50.0); HEMOGLOBIN 11.3 g/dl (14.0-18.0); IMMATURE GRANULOCYTES 0.4 % (0.0-5.0); MEAN CELL VOLUME 90.8 fL CALC (80.0-100.0); MEAN CORPUSCULAR HGB CONC 31.9 g/dL CAL (32.0-36.0); NEUT# 2.18 thou/uL (1.82-7.42); RED BLOOD COUNT 3.9 mill/uL (4.70-6.10); RED CELL DISTRI WIDTH 15.2 % (11.5-15.5)
[2020-04-03 06:30] LABS: ALKALINE PHOSPHATASE 88 u/l (38-126); BILIRUBIN, TOTAL 0.4 mg/dL (0.0-1.4); BUN 7 mg/dL (9-20); BUN/CREATININE RATIO 10 (12-20 (CALC)); CHLORIDE 105 mmol/l (95-108); CREATININE 0.7 mg/dL (0.7-1.3); GFR > 60 ML/MIN (>=60 (CALC)); GFR FOR AFR.AMER. > 60 ML/MIN (>=60 (CALC)); POTASSIUM 4.1 mmol/l (3.5-5.1); SGOT/AST 30 u/l (17-59); SODIUM 137 mmol/l (137-146)
[2020-04-03 06:35] LABS: ALBUMIN 3.2 g/dL (3.2-5.0); ANION GAP 7 (6-22 (CALC)); CARBON DIOXIDE 29 mmol/l (22-30); TOTAL PROTEIN 6.1 g/dL (6.3-8.2)
--- NOTE | 2020-04-03 07:15 | NUR ---
pt intubated and sedated; no apparent distress noted; assessment completed at this time; pupils sluggish; sedated; does not follow commands; resp even and unlabored; lungs clear; skin color wnl; vent intact and maintained with settings of AC mode, 550 TV, rate 18, 40% FiO2, peep 5.0cm, 7.5 ETT, secured at the 22cm lip line; hr reg; strong pulses; no edema noted; abd soft with bs present; no bm noted per director underwriter sales; og tube intact and patent with brown gastric secretions; luis to gravity draining clear yellow urine; TLC flushed and patent to RIJ with ivf/ propofol gtt infusing at 60 mcg/kg/min without complication; #20 intact to rfa; no redness or edema noted at site; generalized scraps and scabs noted; repositioned; bilat wrist restraints released and reapplied for nursing care/ repositioning; oral care; will continue to monitor
--- NOTE | 2020-04-03 08:11 | NUR ---
pt fully awake; able to follow instructions; diprivan gtt titrated to 30 mcg/kg/min; no redness or edema noted at site; pt noted aggressively kicking bed/ footboard; plan of care/ extubation explained; sr on monitor; will continue to monitor
--- NOTE | 2020-04-03 08:21 | NUR ---
Dr Bojorquez present at bedside; pt very aggressive with nursing staff and MD; pt kicking bed; security called; pt pulling at restraints; fully awake and able to follow commands; diprivan gtt turned off as per MD request; RT at bedside; pt extubated; post extubation, pt is cursing at nursing staff; pt states he has to leave here in 10 min; luis catheter removed as per request; pt screaming stating he needs pains meds before the catheter comes out; TLC to RIJ removed due to safety concerns; restraints removed; staff and security at bedside; will continue to monitor
--- NOTE | 2020-04-03 08:24 | NUR ---
PT. EXTUBATED PER DR. GARLAND.
--- NOTE | 2020-04-03 08:57 | NUR ---
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
--- NOTE | 2020-04-03 09:16 | NUR ---
pt left AMA accompanied by security
== END 2020-04-03 09:16 | disposition left against medical advice (07) | DRG 56 ==
LOC: ED 18:19 → ED-I 21:04 → ED 21:17 → ICU 21:18
PROVIDERS: Family Medicine; ADMIT Internal Medicine; ATTEND Internal Medicine
PROC: 0BH17EZ Insertion of Endotracheal Airway into Trachea, Via Natural or Artificial Opening (ICD-10-PCS; principal; 2020-04-02)
PROC: 5A1935Z Respiratory Ventilation, Less than 24 Consecutive Hours (ICD-10-PCS; 2020-04-02)
PROC: 02HV33Z Insertion of Infusion Device into Superior Vena Cava, Percutaneous Approach (ICD-10-PCS; 2020-04-02)
PROC: 0T9B70Z Drainage of Bladder with Drainage Device, Via Natural or Artificial Opening (ICD-10-PCS; 2020-04-02)
DX: G31.2 Degeneration of nervous system due to alcohol (principal); G92 Toxic encephalopathy; F11.20 Opioid dependence, uncomplicated; F10.229 Alcohol dependence with intoxication, unspecified; G40.909 Epilepsy, unspecified, not intractable, without status epilepticus; G89.29 Other chronic pain; Y90.8 Blood alcohol level of 240 mg/100 ml or more; Z91.19 Patient's noncompliance with other medical treatment and regimen; Z20.828 Contact with and (suspected) exposure to other viral communicable diseases

== ENCOUNTER 2020-04-11 10:44 | Emergency (ER) | payer SELFPAY ==
[~2020-04-11] VITALS: Ht 177.8 cm; Wt 90.0 kg
[2020-04-11] MEDS ORDERED: BACTRIM DS1 TAB PO (11:26)
[2020-04-11 12:00] VITALS: BP 131/82
== END 2020-04-11 12:23 | disposition home or self-care (01) | DRG 603 ==
LOC: ED 10:44
DX: L03.114 Cellulitis of left upper limb (principal)

== ENCOUNTER 2021-06-21 13:27 | Emergency (ER) | payer SELFPAY ==
[~2021-06-21] VITALS: Ht 177.8 cm; Wt 89.9 kg
[2021-06-21 13:57] VITALS: BP 122/88
== END 2021-06-21 14:04 | disposition home or self-care (01) | DRG 392 ==
LOC: ED 13:27
DX: R13.10 Dysphagia, unspecified (principal); G40.909 Epilepsy, unspecified, not intractable, without status epilepticus; F41.9 Anxiety disorder, unspecified; F32.9 Major depressive disorder, single episode, unspecified; J45.909 Unspecified asthma, uncomplicated

== ENCOUNTER 2022-01-05 11:17 | Emergency (ER) | payer SELFPAY ==
[~2022-01-05] VITALS: Ht 177.8 cm; Wt 77.0 kg
[2022-01-05 11:48] VITALS: BP 121/55
[2022-01-05 13:50] LABS: IMMATURE GRANULOCYTES 0.4 % (0.0-5.0); MEAN CORPUSCULAR HGB 30.8 pG CALC (26.0-32.0); MEAN CORPUSCULAR HGB CONC 34.1 g/dL CAL (32.0-36.0); NEUT# 8.67 thou/uL (1.82-7.42); RED BLOOD COUNT 4.13 mill/uL (4.70-6.10); RED CELL DISTRI WIDTH 13.6 % (11.5-15.5)
[2022-01-05 14:06] LABS: ALBUMIN 5.5 g/dL (3.2-5.0); ALKALINE PHOSPHATASE 148 u/l (38-126); BUN 11 mg/dL (9-20); BUN/CREATININE RATIO 15 (12-20 (CALC)); CHLORIDE 101 mmol/l (95-108); CREATININE 0.8 mg/dL (0.7-1.3); GFR > 60 ML/MIN (>=60 (CALC)); GFR FOR AFR.AMER. > 60 ML/MIN (>=60 (CALC)); HEMATOCRIT 37.2 % (39.0-50.0); HEMOGLOBIN 12.7 g/dl (14.0-18.0); LIPASE 228 u/l (23-300); MEAN CELL VOLUME 90.1 fL CALC (80.0-100.0); POTASSIUM 3.9 mmol/l (3.5-5.1); SGOT/AST 45 u/l (17-59); TOTAL PROTEIN 9.8 g/dL (6.3-8.2)
[2022-01-05 14:16] LABS: ANION GAP 24 (6-22 (CALC)); CARBON DIOXIDE 20 mmol/l (22-30); SODIUM 141 mmol/l (137-146)
[2022-01-05 14:28] VITALS: BP 124/99
[2022-01-05 17:06] LABS: URINE BLOOD DIPSTICK NEGATIVE (NEGATIVE); URINE COLOR YELLOW; URINE GLUCOSE - DIPSTICK NEGATIVE (NEGATIVE); URINE KETONE >=80 mg/dL (NEGATIVE); URINE LEUK ESTERASE NEGATIVE (NEGATIVE); URINE PROTEIN - DIPSTICK 100 mg/dL (NEG-TRACE); URINE UROBILINOGEN - DIPSTICK 0.2 E.U./dL (0.2)
[2022-01-05 17:09] LABS: URINE BILIRUBIN - DIPSTICK NEGATIVE (NEGATIVE); URINE NITRITE - DIPSTICK NEGATIVE (Negative)
[2022-01-05 17:17] LABS: URINE RBC 0-2 RBC/hpf (0-5); URINE WBC 0-2 WBC/hpf (0-5)
[2022-01-05] MEDS ORDERED: ONDANSETRON4 MG PO (18:08)
[2022-01-05 18:11] VITALS: BP 124/99
== END 2022-01-05 18:25 | disposition home or self-care (01) | DRG 392 ==
LOC: ED 11:17
PROVIDERS: Nurse Practitioner
DX: K52.9 Noninfective gastroenteritis and colitis, unspecified (principal); G40.909 Epilepsy, unspecified, not intractable, without status epilepticus; J45.909 Unspecified asthma, uncomplicated; F41.9 Anxiety disorder, unspecified; F32.A Depression, unspecified; F10.20 Alcohol dependence, uncomplicated
CPT/HCPCS: Q9967

== ENCOUNTER 2022-02-13 13:02 | Observation (INO) | payer SELFPAY ==
[~2022-02-13] VITALS: Ht 177.8 cm; Wt 100.0 kg
[~2022-02-13 13:02] MED LIST changes: +ONDANSETRON4 MG PO
--- NOTE | 2022-02-13 13:02 | NUR ---
PT TO ROOM 2 VIA EMS.
[2022-02-13 13:12] VITALS: BP 118/59
--- NOTE | 2022-02-13 13:53 | NUR ---
PT SITTING AT EDGE OF BED. APPEARS COMFORTABLE. ADVISED OF PENDING POC. PT VOICED UNDERSTANDING.
[2022-02-13 13:55] LABS: HEMATOCRIT 41.9 % (39.0-50.0); HEMOGLOBIN 14.1 g/dl (14.0-18.0); IMMATURE GRANULOCYTES 0.1 % (0.0-5.0); MEAN CELL VOLUME 91.1 fL CALC (80.0-100.0); MEAN CORPUSCULAR HGB 30.7 pG CALC (26.0-32.0); MEAN CORPUSCULAR HGB CONC 33.7 g/dL CAL (32.0-36.0); NEUT# 3.88 thou/uL (1.82-7.42); RED BLOOD COUNT 4.6 mill/uL (4.70-6.10); RED CELL DISTRI WIDTH 13.6 % (11.5-15.5)
[2022-02-13 15:59] VITALS: BP 107/64
--- NOTE | 2022-02-16 13:06 | NUR ---
AMENDMENT: DATE OF OCCURENCE WAS 02/13/2022 1600 NURSE ENTERED ROOM TO BEGIN ASSESSMENT AND PATIENT WAS YELLING AT THE SUPERVISOR SHIPPING ROOM, SAYING SHE GAVE HIM SCALDING HOT BROTH AND IT BURNED HIS THROAT. NURSE TRIED TO SPEAK WITH PAIENT, BUT HE CONTINUED TO GET MORE UPSET AND ANGRY. HE WANTED TO LEAVE. HE GOT VERBALLY ABUSIVE WITH NURSE AND SUPERVISOR SHIPPING ROOM. NURSE LEFT ROOM AND WENT TO CALL PHYSICIAN TO INFORM OF PATIENT INTENT TO LEAVE AMA. PATIENT CAME OUT TO NURSING STATION DRESSED AND SAID HE WANTED HIS AMA PAPER TO SIGN. STAFF WAS STILL TRYING TO GET IN TOUCH WITH PHYSICIAN. NURSING FILM DEVELOPING MACHINE OPERATOR WAS MADE AWARE OF STITUATION. AMA PAPERWORK WAS FILLED OUT AND GIVEN TO PATIENT, HE SIGNED AND LEFT UNIT AT AROUND 1630. HE DID REMOVE THE IV HIMSELF WHILE IN ROOM.
--- NOTE | 2022-02-19 14:09 | NUR ---
PATIENT WAS SEEN IN THE ER ON 02/13/22 AND AN EGD WAS DONE. I ATTEMPETED TO SCHEDULE A FOLLOW UP APPT REGARDING THE PATHOLOGY RESULTS. THE PATIENT HUNG UP ON ME TWICE. I AM UNAWARE OF WHO HIS PRIMARY IS TO SEND THE RESULTS.
== END 2022-02-13 16:15 | disposition left against medical advice (07) | DRG 394 ==
LOC: ED 13:02 → ORM 13:48 → ED 14:19 → MS2 15:45
PROVIDERS: ADMIT Internal Medicine; ATTEND Surgery
PROC: 0DC28ZZ Extirpation of Matter from Middle Esophagus, Via Natural or Artificial Opening Endoscopic (ICD-10-PCS; principal; 2022-02-13)
PROC: 0DB28ZX Excision of Middle Esophagus, Via Natural or Artificial Opening Endoscopic, Diagnostic (ICD-10-PCS; 2022-02-13)
PROC: 0D728ZZ Dilation of Middle Esophagus, Via Natural or Artificial Opening Endoscopic (ICD-10-PCS; 2022-02-13)
DX: T18.128A Food in esophagus causing other injury, initial encounter (principal); K22.2 Esophageal obstruction; K29.80 Duodenitis without bleeding; K29.70 Gastritis, unspecified, without bleeding; K44.9 Diaphragmatic hernia without obstruction or gangrene; F11.20 Opioid dependence, uncomplicated; G40.909 Epilepsy, unspecified, not intractable, without status epilepticus; F41.9 Anxiety disorder, unspecified; J45.909 Unspecified asthma, uncomplicated; F32.A Depression, unspecified; F10.20 Alcohol dependence, uncomplicated; X58.XXXA Exposure to other specified factors, initial encounter; Z20.822 Contact with and (suspected) exposure to COVID-19
CPT/HCPCS: J1610

== ENCOUNTER 2022-03-01 08:04 | Emergency (ER) | payer SELFPAY ==
[~2022-03-01] VITALS: Ht 177.8 cm; Wt 81.6 kg
[2022-03-01 08:11] VITALS: BP 153/80
[2022-03-01 08:31] VITALS: BP 148/98
[2022-03-01 09:01] VITALS: BP 122/68
[2022-03-01 09:04] LABS: IMMATURE GRANULOCYTES 0.3 % (0.0-5.0); MEAN CELL VOLUME 91.9 fL CALC (80.0-100.0); MEAN CORPUSCULAR HGB 30.6 pG CALC (26.0-32.0); MEAN CORPUSCULAR HGB CONC 33.3 g/dL CAL (32.0-36.0); NEUT# 4.23 thou/uL (1.82-7.42); RED BLOOD COUNT 5.42 mill/uL (4.70-6.10); RED CELL DISTRI WIDTH 13.2 % (11.5-15.5)
[2022-03-01 09:07] LABS: HEMATOCRIT 49.8 % (39.0-50.0); HEMOGLOBIN 16.6 g/dl (14.0-18.0)
[2022-03-01 09:20] LABS: ALBUMIN 4.7 g/dL (3.2-5.0); ALKALINE PHOSPHATASE 148 u/l (38-126); AMYLASE 75 u/l (30-110); BILIRUBIN, TOTAL 0.7 mg/dL (0.0-1.4); BUN 8 mg/dL (9-20); BUN/CREATININE RATIO 10 (12-20 (CALC)); CHLORIDE 105 mmol/l (95-108); CREATININE 0.8 mg/dL (0.7-1.3); ETHYL ALCOHOL 0 mg/dl (0-30); GFR > 60 ML/MIN (>=60 (CALC)); GFR FOR AFR.AMER. > 60 ML/MIN (>=60 (CALC)); LIPASE 157 u/l (23-300); SODIUM 140 mmol/l (137-146); TOTAL PROTEIN 8.7 g/dL (6.3-8.2)
[2022-03-01 09:31] VITALS: BP 129/65
[2022-03-01 09:32] LABS: ANION GAP 15 (6-22 (CALC)); CARBON DIOXIDE 25 mmol/l (22-30); POTASSIUM 4.7 mmol/l (3.5-5.1); SGOT/AST 271 u/l (17-59)
[2022-03-01 10:16] VITALS: BP 138/78
[2022-03-01 10:30] VITALS: BP 147/83
[2022-03-01 11:05] LABS: URINE BILIRUBIN - DIPSTICK NEGATIVE (NEGATIVE); URINE BLOOD DIPSTICK NEGATIVE (NEGATIVE); URINE COLOR YELLOW; URINE GLUCOSE - DIPSTICK NEGATIVE (NEGATIVE); URINE KETONE 40 mg/dL (NEGATIVE); URINE LEUK ESTERASE NEGATIVE (NEGATIVE); URINE PROTEIN - DIPSTICK NEGATIVE (NEG-TRACE); URINE UROBILINOGEN - DIPSTICK 0.2 E.U./dL (0.2)
[2022-03-01 11:07] LABS: URINE NITRITE - DIPSTICK NEGATIVE (Negative)
[2022-03-01] MEDS ORDERED: PROTONIX40 MG PO (12:26)
[2022-03-01] MEDS ORDERED: PHENERGAN25 MG RE (12:26)
== END 2022-03-01 13:08 | disposition home or self-care (01) | DRG 395 ==
LOC: ED 08:04
DX: R11.15 Cyclical vomiting syndrome unrelated to migraine (principal); F12.988 Cannabis use, unspecified with other cannabis-induced disorder; R74.8 Abnormal levels of other serum enzymes; G40.909 Epilepsy, unspecified, not intractable, without status epilepticus; F41.9 Anxiety disorder, unspecified; F32.A Depression, unspecified; J45.909 Unspecified asthma, uncomplicated; F10.20 Alcohol dependence, uncomplicated; Z20.822 Contact with and (suspected) exposure to COVID-19
CPT/HCPCS: Q9967; S0164

== ENCOUNTER 2022-03-02 08:11 | Emergency (ER) | payer SELFPAY ==
[~2022-03-02] VITALS: Ht 177.8 cm; Wt 100.0 kg
[~2022-03-02 08:11] MED LIST changes: +PROTONIX40 MG PO
[2022-03-02 08:54] LABS: HEMOGLOBIN 14.8 g/dl (14.0-18.0); IMMATURE GRANULOCYTES 0.4 % (0.0-5.0); MEAN CELL VOLUME 92.2 fL CALC (80.0-100.0); MEAN CORPUSCULAR HGB 30.3 pG CALC (26.0-32.0); MEAN CORPUSCULAR HGB CONC 32.9 g/dL CAL (32.0-36.0); NEUT# 5.08 thou/uL (1.82-7.42); RED BLOOD COUNT 4.88 mill/uL (4.70-6.10)
[2022-03-02 09:17] LABS: ALBUMIN 4.2 g/dL (3.2-5.0); ALKALINE PHOSPHATASE 112 u/l (38-126); AMYLASE 59 u/l (30-110); ANION GAP 15 (6-22 (CALC)); BILIRUBIN, TOTAL 0.6 mg/dL (0.0-1.4); BUN 7 mg/dL (9-20); BUN/CREATININE RATIO 8 (12-20 (CALC)); CARBON DIOXIDE 22 mmol/l (22-30); CHLORIDE 106 mmol/l (95-108); CREATININE 0.8 mg/dL (0.7-1.3); GFR > 60 ML/MIN (>=60 (CALC)); GFR FOR AFR.AMER. > 60 ML/MIN (>=60 (CALC)); LIPASE 73 u/l (23-300); SGOT/AST 89 u/l (17-59); SODIUM 139 mmol/l (137-146); TOTAL PROTEIN 7.5 g/dL (6.3-8.2)
[2022-03-02 11:29] VITALS: BP 156/86
== END 2022-03-02 11:32 | disposition home or self-care (01) | DRG 392 ==
LOC: ED 08:11
DX: K29.70 Gastritis, unspecified, without bleeding (principal); R74.8 Abnormal levels of other serum enzymes; F11.20 Opioid dependence, uncomplicated; G40.909 Epilepsy, unspecified, not intractable, without status epilepticus; F41.9 Anxiety disorder, unspecified; J45.909 Unspecified asthma, uncomplicated; F32.A Depression, unspecified; F10.20 Alcohol dependence, uncomplicated

== ENCOUNTER 2022-04-06 08:17 | Emergency (ER) | payer SELFPAY ==
[~2022-04-06] VITALS: Ht 177.8 cm; Wt 86.3 kg
[2022-04-06 08:25] VITALS: BP 166/86
[2022-04-06 08:31] VITALS: BP 131/92
[2022-04-06 08:38] LABS: HEMATOCRIT 48.7 % (39.0-50.0); HEMOGLOBIN 16.4 g/dl (14.0-18.0); IMMATURE GRANULOCYTES 0.1 % (0.0-5.0); MEAN CELL VOLUME 89.7 fL CALC (80.0-100.0); MEAN CORPUSCULAR HGB 30.2 pG CALC (26.0-32.0); MEAN CORPUSCULAR HGB CONC 33.7 g/dL CAL (32.0-36.0); NEUT# 7.47 thou/uL (1.82-7.42); RED BLOOD COUNT 5.43 mill/uL (4.70-6.10); RED CELL DISTRI WIDTH 12.8 % (11.5-15.5)
[2022-04-06 08:46] VITALS: BP 151/72
[2022-04-06 09:00] VITALS: BP 156/87
[2022-04-06 09:17] LABS: ALBUMIN 4.9 g/dL (3.2-5.0); ALKALINE PHOSPHATASE 116 u/l (38-126); ANION GAP 15 (6-22 (CALC)); BILIRUBIN, TOTAL 0.7 mg/dL (0.0-1.4); BUN 4 mg/dL (9-20); BUN/CREATININE RATIO 6 (12-20 (CALC)); CARBON DIOXIDE 23 mmol/l (22-30); CHLORIDE 105 mmol/l (95-108); CREATININE 0.7 mg/dL (0.7-1.3); GFR FOR AFR.AMER. > 60 ML/MIN (>=60 (CALC)); GFR OTHER RACES > 60 ML/MIN (>=60 (CALC)); LIPASE 284 u/l (23-300); POTASSIUM 3.8 mmol/l (3.5-5.1); SGOT/AST 29 u/l (17-59); SODIUM 140 mmol/l (137-146); TOTAL PROTEIN 8.4 g/dL (6.3-8.2)
[2022-04-06 10:09] VITALS: BP 150/90
[2022-04-06] MEDS ORDERED: PHENERGAN25 MG RE (10:28)
[2022-04-06 10:34] VITALS: BP 150/90
== END 2022-04-06 10:36 | disposition home or self-care (01) | DRG 392 ==
LOC: ED 08:17
PROVIDERS: Family Medicine
DX: R10.33 Periumbilical pain (principal); R11.2 Nausea with vomiting, unspecified; J45.909 Unspecified asthma, uncomplicated; F98.8 Other specified behavioral and emotional disorders with onset usually occurring in childhood and adolescence; G40.909 Epilepsy, unspecified, not intractable, without status epilepticus; F41.9 Anxiety disorder, unspecified; F32.A Depression, unspecified
CPT/HCPCS: Q9967

== ENCOUNTER 2022-05-26 11:57 | Emergency (ER) | payer SELFPAY ==
[~2022-05-26] VITALS: Ht 177.8 cm; Wt 90.0 kg
[2022-05-26 13:20] VITALS: BP 116/70
[2022-05-26 13:30] VITALS: BP 120/71
[2022-05-26 14:01] VITALS: BP 118/50
[2022-05-26 14:30] VITALS: BP 117/71
[2022-05-26 15:00] VITALS: BP 113/65
[2022-05-26] MEDS ORDERED: LORTAB 1010 MG PO (15:37)
[2022-05-26] MEDS ORDERED: NAPROXEN500 MG PO (15:37)
[2022-05-26] MEDS ORDERED: KEFLEX500 MG PO (15:37)
[2022-05-26 15:48] VITALS: BP 113/65
== END 2022-05-26 15:48 | disposition home or self-care (01) | DRG 605 ==
LOC: ED 11:57
DX: S81.011A Laceration without foreign body, right knee, initial encounter (principal); W26.8XXA Contact with other sharp object(s), not elsewhere classified, initial encounter